=== PATIENT | female | born 1935 | race Caucasian/White ===

== ENCOUNTER → 2016-07-15 | Outpatient (CLI) | payer OTHER ==
[2014-08-20 15:01] VITALS: BP 160/61
[~2016-07-15] MED LIST: ATEN50TA PO; FERR500P8 MC; HYDR-2666 PO; INFL100V IV; LEVO75TA5 PO; LISI-334 PO; METH2.5T PO
--- NOTE | 2016-07-16 08:38 | KCIC ---
Bilateral digital screening mammograms with CAD: HISTORY Routine screening COMPARISON Comparison is made to previous examinations dated back to 04/22/2012. FINDINGS Breast density category C. The skin and nipples show no abnormalities. No abnormal lymph nodes are seen in the axilla. The breast parenchyma shows heterogeneous density. There are post biopsy changes in the right breast. There are no new dominant masses, suspicious calcifications or architectural distortions. IMPRESSION No evidence of malignancy. Recommend routine annual mammographic screening. This study was interpreted with the benefit of Computerized Aided Detection (CAD). Mammography is not 100% sensitive in detecting breast cancer. Therefore, a self breast exam and a clinical breast exam are very important. A negative mammogram does not negate a clinically suspicious finding and should not result in a delay in biopsying a clinically suspicious abnormality. BI-RADS category 2: Benign. This patient's information has been entered into a reminder system for the patient to be notified with the results of this examination and a target date for her next mammograms. Electronically signed by: Leydi Cota MD (Jul 16, 2016 08:36:15)
== END | disposition home or self-care (01) ==
LOC: KCIC MAMMO 10:29
PROVIDERS: ATTEND Family Medicine
DX: Z12.31 Encounter for screening mammogram for malignant neoplasm of breast (principal)
CPT/HCPCS: 77052; G0202

== ENCOUNTER → 2017-08-03 | Outpatient (CLI) | payer OTHER | END | disposition home or self-care (01) | LOC: KCIC MAMMO 12:24 | DX: Z12.31 Encounter for screening mammogram for malignant neoplasm of breast (principal) | CPT/HCPCS: 77063; 77067 ==

== ENCOUNTER → 2018-08-04 | Outpatient (CLI) | payer OTHER ==
[2014-08-20 15:01] VITALS: BP 160/61
[~2018-08-04] MED LIST changes: -HYDR-2666 PO; +HYDR-2761 PO
--- NOTE | 2018-08-04 17:03 | KCIC ---
Bilateral digital screening mammograms: Reason for examination: Routine screening. Comparison is made to previous studies dated 08/03/2017 and 07/15/2016. Interpretation was made with the benefit of CAD. The skin and nipples show no abnormalities. No abnormal axillary lymph nodes are seen. The breast parenchyma is heterogeneously dense. (Breast density: Category C.) There is a nodule consistent with an intramammary lymph node at the 2:00 position of the left breast posteriorly. There are no new dominant masses, suspicious calcifications or architectural distortion. Impression: No evidence of malignancy. Recommend routine screening. Your patient's mammogram demonstrates that she has dense breast tissue (breast density category C or D), which could hide abnormalities, and if she has other risk factors for breast cancer that have been identified, she might benefit from supplemental screening tests that may be suggested by you as her ordering physician. Dense breast tissue, in and of itself, is a relatively common condition. Therefore, this information is not provided to cause undue concern, but rather to raise your awareness and to promote discussion with your patient regarding the presence of other risk factors, in addition to dense breast tissue. Your patient's mammography results will be sent to her. BI-RAD Category 2: Benign. "Our facility is accredited by the [employer] Mammography Program." This patient's information has been entered into a reminder system for the patient to be notified with the results of her examination and a target date for the next mammogram. Electronically signed by: Maggy Cota MD (08/04/2018 4:58 PM) [id number]
== END | disposition home or self-care (01) ==
LOC: KCIC MAMMO 13:51
PROVIDERS: ATTEND Family Medicine
DX: Z12.31 Encounter for screening mammogram for malignant neoplasm of breast (principal); N63.21 Unspecified lump in the left breast, upper outer quadrant
CPT/HCPCS: 77067

== ENCOUNTER → 2019-01-17 | Outpatient (CLI) | payer OTHER ==
[2014-08-20 15:01] VITALS: BP 160/61
--- NOTE | 2019-01-17 12:58 | RAD ---
Left lower extremity venous duplex study 01/17/2019 Clinical History: Left lower extremity edema Technique: Using a combination of real time ultrasound imaging and color-flow and pulse Doppler imaging techniques, including spectral analysis, graded compression and augmentation, duplex evaluation of the deep venous system of the left lower extremity was performed. Multiple images were obtained. Findings: There is no sonographic evidence of deep venous thrombosis involving the visualized deep venous structures of the left lower extremity Impression: No evidence of deep venous thrombosis involving the left lower extremity Electronically signed by: Henri Ramos MD (01/17/2019 12:55 PM) [id number]
== END | disposition home or self-care (01) ==
LOC: US 09:48
PROVIDERS: ATTEND Registered Nurse
DX: M79.89 Other specified soft tissue disorders (principal); M79.605 Pain in left leg
CPT/HCPCS: 93971

== ENCOUNTER → 2019-08-09 | Outpatient (CLI) | payer MEDICARE, OTHER ==
[2019-02-16 15:00] VITALS: BP 134/53
[~2019-08-09] MED LIST changes: +ATOR20TA PO; +CELE100C PO; +CHOL10003 PO; +FERR325T14 PO; +FOLI1TAB16 PO
--- NOTE | 2019-08-09 16:04 | KCIC ---
EXAM: Left lower extremity venous Doppler sonogram. HISTORY: Pain and swelling. TECHNIQUE: Donato scale and color Doppler sonographic evaluation of the left lower extremity veins with spectral waveform analysis was performed. FINDINGS: There is normal color flow, normal compressibility and there are normal spectral waveforms in the common femoral, superficial femoral, popliteal, posterior tibial and greater saphenous veins. IMPRESSION: No Doppler evidence of lower extremity deep venous thrombosis. Electronically signed by: Mya Espinosa MD (08/09/2019 4:00 PM) [facility] [place]
== END | disposition home or self-care (01) ==
LOC: KCIC US 15:16
PROVIDERS: ATTEND Family Medicine
DX: R60.0 Localized edema (principal)
CPT/HCPCS: 93971

== ENCOUNTER → 2020-01-31 | Outpatient (CLI) | payer MEDICARE ==
[2019-02-16 15:00] VITALS: BP 134/53
--- NOTE | 2020-01-31 12:00 | RAD ---
EXAM: Bilateral lower extremity arterial Doppler. HISTORY: Bilateral lower extremity pain, peripheral vascular disease. COMPARISON: None. FINDINGS: Grayscale and Doppler analysis of the lower extremity arterial systems was performed bilaterally. On the right, there are monophasic waveforms from the common femoral artery through the distal superficial femoral artery. There are elevated peak systolic velocities within the mid and distal superficial femoral artery. More distally, they become biphasic consistent with collateralization. There also appear monophasic within the dorsalis pedis artery. On the left, there are triphasic waveforms throughout. There are elevated velocities within the proximal and mid superficial femoral artery. IMPRESSION: 1. Findings consistent with significantly flow-limiting stenosis proximal to the right common femoral artery. There appears to be collateralization with improvement of waveforms in the right popliteal artery. Additional flow-limiting stenosis is suspected within the trifurcation vessels as the dorsalis pedis waveform is monophasic. 2. Mildly flow-limiting stenosis proximal to the left common femoral artery. Additional mildly flow-limiting stenosis is suspected within the left superficial femoral artery. Electronically signed by: Philomena Lambert MD (01/31/2020 11:57 AM) [id number]
== END | disposition home or self-care (01) ==
LOC: US 09:43
PROVIDERS: ATTEND Family Medicine
DX: I70.202 Unspecified atherosclerosis of native arteries of extremities, left leg (principal); M79.604 Pain in right leg; M79.605 Pain in left leg
CPT/HCPCS: 93925

== ENCOUNTER → 2020-05-02 | Outpatient (CLI) | payer MEDICARE ==
[2019-02-16 15:00] VITALS: BP 134/53
--- NOTE | 2020-05-02 12:33 | KCIC ---
LUMBAR SPINE WO CONTRAST Date: 05/02/2020 10:15 AM Indication: RIGHT AND LEFT LEG PAIN. Recent procedure done for compression fx. New onset of severe leg pain after recent vertebroplasty. Comparison: None. Technique: Multi-planar multi-weighted magnetic resonance imaging of the lumbar spine was performed without intravenous contrast using the standard lumbar spine protocol. FINDINGS: L1 compression deformity with 30 percent loss of vertebral body height and changes of vertebral augmentation. Osseous retropulsion of the superior endplate results in moderate spinal canal stenosis with abutment of the conus medullaris. No convincing abnormal spinal cord signal. Mild to moderate multilevel degenerative disc desiccation and disc height loss. Bone marrow signal intensity is normal. No soft tissue abnormality in the visualized abdomen or pelvis. T12-L1: Disc bulge. Osseous retropulsion. Moderate spinal canal stenosis. Mild facet arthropathy. Ligamentum flavum thickening. Mild neural foraminal narrowing. L1-L2: Disc bulge. Mild facet arthropathy. No significant spinal canal stenosis or neural foraminal narrowing. L2-L3: Disc bulge with annular tear. Mild facet arthropathy. Mild spinal stenosis. Mild left neural foraminal narrowing. L3-L4: Disc bulge with annular tear. Mild to moderate facet arthropathy. Mild spinal stenosis. Mild left neural foraminal narrowing. L4-L5: Disc bulge with annular tear. Mild right and moderate left facet arthropathy. No significant spinal stenosis. Mild lateral recess narrowing. Mild right neural foraminal narrowing. L5-S1: Disc bulge. Mild facet arthropathy. No significant spinal stenosis. Mild bilateral neural foraminal narrowing. IMPRESSION: 1. Acute to subacute L1 compression deformity with changes of vertebral augmentation. Osseous retropulsion results in moderate spinal canal stenosis with mass effect on the conus medullaris. Recommended comparison with prior imaging to assess for progression of height loss. 2. Mild to moderate lumbar spondylosis, detailed level by level above. Electronically signed by: Sebastien Estrada MD (05/02/2020 12:30 PM) [id number]
== END ==
LOC: KCIC MRI 09:51
PROVIDERS: ATTEND Nurse Practitioner Gerontology
DX: M47.817 Spondylosis without myelopathy or radiculopathy, lumbosacral region (principal); M47.815 Spondylosis without myelopathy or radiculopathy, thoracolumbar region; M48.05 Spinal stenosis, thoracolumbar region; M48.07 Spinal stenosis, lumbosacral region; M43.8X6 Other specified deforming dorsopathies, lumbar region
CPT/HCPCS: 72148

== ENCOUNTER 2020-07-30 14:36 | Inpatient (IN) | payer MEDICARE ==
[~2020-07-30] VITALS: Ht 167.6 cm; Wt 59.3 kg
[~2020-07-30 14:36] MED LIST changes: -LISI-334 PO; +LISI20TA18 PO
[2020-07-30 15:18] LABS: BASO # 0.1 x10^3/uL (0.0-0.2); BASO % 1 % (0-3); EOS # 0.3 x10^3/uL (0.0-0.7); EOS % 2 % (0-3); HEMATOCRIT 31.7 % (36.0-47.0); HEMOGLOBIN 10.6 g/dL (12.0-15.5); LYMPH # 1.2 x10^3/uL (1.0-4.8); LYMPH % 8 % (24-48); MEAN CORPUSCULAR HEMOGLOBIN 31 pg (25-35); MEAN CORPUSCULAR HGB CONC 33 g/dL (31-37); MEAN CORPUSCULAR VOLUME 92 fL (79-100); MONO # 1.2 x10^3/uL (0.0-1.1); MONO % 8 % (0-9); NEUT # 11.9 x10^3/uL (1.8-7.7); NEUT % 82 % (31-73); PLATELET COUNT 705 x10^3/uL (140-400); RED BLOOD COUNT 3.45 x10^6/uL (3.50-5.40); RED CELL DISTRIBUTION WIDTH 15.7 % (11.5-14.5); WHITE BLOOD COUNT 14.6 x10^3/uL (4.0-11.0)
[2020-07-30 15:27] LABS: CREATININE 0.9 mg/dL (0.6-1.0); GFR 59.8; POTASSIUM 5.1 mmol/L (3.5-5.1)
[2020-07-30 15:32] LABS: ALBUMIN 3.1 g/dL (3.4-5.0); ALBUMIN/GLOBULIN RATIO 0.9 (1.0-1.7); MAGNESIUM 2.1 mg/dL (1.8-2.4); TOTAL BILIRUBIN 0.3 mg/dL (0.2-1.0); TOTAL PROTEIN 6.6 g/dL (6.4-8.2)
--- NOTE | 2020-07-30 15:57 | RAD ---
XR CHEST 1V History: Reason: generalized weakness / Spl. Instructions: / History: Comparison: February 11, 2019 Findings: Moderate left pleural effusion with adjacent opacity. Chronic right-sided rib fractures. No pneumotho rax. Unchanged heart size. TAVR noted. Postop changes upper lumbar spine. Impression: 1. Moderate left pleural effusion with adjacent atelectasis. Electronically signed by: Franko Lopez DO (07/30/2020 3:54 PM) [id number]
[2020-07-30 16:19] LABS: BILIRUBIN,URINE NEGATIVE (NEG); CLARITY,URINE CLEAR; COLOR,URINE YELLOW; NITRITE,URINE NEGATIVE (NEG); PH,URINE 6.5 (<5.0-8.0); PROTEIN,URINE NEGATIVE (NEG-TRACE); UROBILINOGEN,URINE 0.2 mg/dL (0.2 mg/dL)
[2020-07-30 16:25] LABS: BACTERIA,URINE 0 /HPF (0-FEW); RBC,URINE 0 /HPF (0-2); WBC,URINE OCC /HPF (0-4)
--- NOTE | 2020-07-30 16:47 | ED.ADGEN ---
Past Medical History Past Medical History: Hypertension, Other Additional Past Medical Histor: thyroid disease, RA, anemia, Past Surgical History: Other Additional Past Surgical Histo: thyroid, biopsy of R breast, AORTIC VALVE REPLACEMENT Smoking Status: Former Smoker Alcohol Use: Rarely Drug Use: None General Adult EDM: Chief Complaint: WEAKNESS/GENERALIZED HPI: HPI: Patient is a 84 year old female who presents emergency department with complaints of generalized weakness that has gotten worse over the last week. She denies any chest pain, palpitations, cough, shortness of breath, nausea, vomiting, diarrhea, abdominal pain, body aches, numbness, tingling, or edema. Patient states she saw her primary care doctor a week ago and received a steroid injection into both of her knees. Patient states she had some lab work done at that time and was prescribed antibiotic that began with O. She is not sure what the antibiotic was. Patient states she was supposed to get a chest x-ray but never did. She denies any known exposure to COVID-19 or influenza. She denies any dysuria, increased urinary frequency, hematuria, or difficulty voiding. She denies any headache or difficulty speaking. The patient currently denies any pain. Review of Systems: Review of Systems: Complete ROS is negative unless otherwise noted in HPI. Allergies: Allergies: Allergies Coded Allergies Type Severity Reaction Last Updated Verified No Known Drug Allergies 08/20/14 No Physical Exam: PE: Constitutional: Well developed, well nourished, no acute distress, non-toxic appearance. [] HENT: Normocephalic, atraumatic, bilateral external ears normal, nose normal. [] Eyes: PERRLA, EOMI, conjunctiva normal, no discharge. [] Neck: Normal range of motion, no stridor. [] Cardiovascular:Heart rate regular rhythm Lungs & Thorax: Respirations even and unlabored, no retractions, no respiratory distress Abdomen: soft, no tenderness Skin: Warm, dry, no erythema, no rash. [] Extremities: No cyanosis, ROM intact, no edema. [] Neurologic: Alert and oriented X 3, motor intact, sensation intact, no focal deficits noted. [] Psychologic: Affect normal, judgement normal, mood normal. [] Current Patient Data: Labs: Laboratory Tests Test 07/30/20 14:45 07/30/20 16:05 White Blood Count 14.6 x10^3/uL (4.0-11.0) H Red Blood Count 3.45 x10^6/uL (3.50-5.40) L Hemoglobin 10.6 g/dL (12.0-15.5) L Hematocrit 31.7 % (36.0-47.0) L Mean Corpuscular Volume 92 fL (79-100) Mean Corpuscular Hemoglobin 31 pg (25-35) Mean Corpuscular Hemoglobin Concent 33 g/dL (31-37) Red Cell Distribution Width 15.7 % (11.5-14.5) H Platelet Count 705 x10^3/uL (140-400) H Neutrophils (%) (Auto) 82 % (31-73) H Lymphocytes (%) (Auto) 8 % (24-48) L Monocytes (%) (Auto) 8 % (0-9) Eosinophils (%) (Auto) 2 % (0-3) Basophils (%) (Auto) 1 % (0-3) Neutrophils # (Auto) 11.9 x10^3/uL (1.8-7.7) H Lymphocytes # (Auto) 1.2 x10^3/uL (1.0-4.8) Monocytes # (Auto) 1.2 x10^3/uL (0.0-1.1) H Eosinophils # (Auto) 0.3 x10^3/uL (0.0-0.7) Basophils # (Auto) 0.1 x10^3/uL (0.0-0.2) Sodium Level 131 mmol/L (136-145) L Potassium Level 5.1 mmol/L (3.5-5.1) Chloride Level 95 mmol/L (98-107) L Carbon Dioxide Level 26 mmol/L (21-32) Anion Gap 10 (6-14) Blood Urea Nitrogen 33 mg/dL (7-20) H Creatinine 0.9 mg/dL (0.6-1.0) Estimated GFR (Cockcroft-Gault) 59.8 BUN/Creatinine Ratio 37 (6-20) H Glucose Level 102 mg/dL (70-99) H Calcium Level 9.0 mg/dL (8.5-10.1) Magnesium Level 2.1 mg/dL (1.8-2.4) Total Bilirubin 0.3 mg/dL (0.2-1.0) Aspartate Amino Transferase (AST) 30 U/L (15-37) Alanine Aminotransferase (ALT) 25 U/L (14-59) Alkaline Phosphatase 90 U/L (46-116) Troponin I Quantitative 0.019 ng/mL (0.000-0.055) Total Protein 6.6 g/dL (6.4-8.2) Albumin 3.1 g/dL (3.4-5.0) L Albumin/Globulin Ratio 0.9 (1.0-1.7) L Urine Collection Type Unknown Urine Color Yellow Urine Clarity Clear Urine pH 6.5 (<5.0-8.0) Urine Specific [place] 1.010 (1.000-1.030) Urine Protein Negative mg/dL (NEG-TRACE) Urine Glucose (UA) Negative mg/dL (NEG) Urine Ketones (Stick) Negative mg/dL (NEG) Urine Blood Negative (NEG) Urine Nitrite Negative (NEG) Urine Bilirubin Negative (NEG) Urine Urobilinogen Dipstick 0.2 mg/dL (0.2 mg/dL) Urine Leukocyte Esterase Negative (NEG) Urine RBC 0 /HPF (0-2) Urine WBC Occ /HPF (0-4) Urine Squamous Epithelial Cells Few /LPF Urine Bacteria 0 /HPF (0-FEW) Laboratory Tests 07/30/20 14:45 Laboratory Tests 07/30/20 14:45 Vital Signs: Vital Signs Date Time Temp Pulse Resp B/P (MAP) Pulse Ox O2 Delivery O2 Flow Rate FiO2 07/30/20 16:45 94 18 94 07/30/20 14:45 97.8 144/65 (91) Room Air 97.8 EKG: EKG: [][id number] rhythm, LVH with repolarization abnormality, rate 94, no STEMI Heart Score: Risk Scores: Score 0 - 3: 2.5% MACE over next 6 weeks - Discharge Home Score 4 - 6: 20.3% MACE over next 6 weeks - Admit for Clinical Observation Score 7 - 10: 72.7% MACE over next 6 weeks - Early Invasive Strategies Radiology/Procedures: Radiology/Procedures: PROCEDURE: CHEST AP ONLY XR CHEST 1V History: Reason: generalized weakness / Spl. Instructions: / History: Comparison: February 11, 2019 Findings: Moderate left pleural effusion with adjacent opacity. Chronic right-sided rib fractures. No pneumothorax. Unchanged heart size. TAVR noted. Postop changes upper lumbar spine. Impression: 1. Moderate left pleural effusion with adjacent atelectasis. [] Course & Med Decision Making: Course & Med Decision Making Pertinent Labs and Imaging studies reviewed. (See chart for details) [id number]-spoke with Dr. Kimble who is the admitting physician, and care was assumed following discussion of patient. Will admit patient for generalized weakness and left pleural effusion. Patient's vital signs stable. Patient remains afebrile, appears nontoxic, respirations even and unlabored. Patient will be admitted to the medical surgical floor. Patient's case and plan of care also discussed with Dr. Bueno [] Ganesh Disclaimer: Ganesh Disclaimer: This electronic medical record was generated, in whole or in part, using a voice recognition dictation system. Departure Departure Impression: Primary Impression: Weakness Additional Impression: Pleural effusion, left Disposition: 09 ADMITTED INPT THIS HOSP Admitting Physician: TARAH (Lamin ) Condition: STABLE Referrals: YADIRA WEI MD (PCP) Problem Qualifiers ANITA MILLER APRN Jul 30, 2020 16:47
[2020-07-30] MEDS ORDERED: AZITHRMYCN 500MG IVPB FOR OMNI 250 ML IV ONE (17:15)
[2020-07-30 19:15] VITALS: BP 140/63
--- NOTE | 2020-07-30 20:45 | PDOC1 ---
History and Physical Date of Admission Date of Admission DATE: 07/30/20 TIME: 20:39 Identification/Chief Complaint Chief Complaint weakness, pain Source Source: Chart review, Patient History of Present Illness History of Present Illness Ms. Null, is a 84-year-old female with history of aortic stenosis s/p TAVR at [facility] in June 2018 admit from ER for marked weaknes, worse over 1 week, and severe today. could not get out of bed, was directed to the ER by primary care no LE edema, but left leg pain, Past Medical History Cardiovascular: HTN, Other Musculoskeletal: low back pain Rheumatologic: Rheumatoid arthritis Endocrine: Hypothyroidism Past Surgical History Past Surgical History: Other Family History Family History: High Cholestrol, Hypertension Social History Smoke: No ALCOHOL: none Drugs: None Current Problem List Problem List Problems Medical Problems: (1) Pleural effusion, left Status: Acute (2) Weakness Status: Acute Current Medications Current Medications Current Medications Azithromycin 250 ml @ 250 mls/hr 1X ONCE IV Last administered on 07/30/20at 18:50; Start 07/30/20 at 17:15; Stop 07/30/20 at 18:14; Status DC Active Scripts Active Celebrex (Celecoxib) 100 Mg Capsule 100 Mg PO BID 14 Days Methotrexate (Methotrexate Sodium) 2.5 Mg Tablet 15 Mg PO FR@0900 30 Days Reported Lipitor (Atorvastatin Calcium) 20 Mg Tablet 20 Mg PO HS Vitamin D3 (Cholecalciferol (Vitamin D3)) 1,000 Unit Tablet 1 Tab PO DAILY Folic Acid 1 Mg Tablet 1 Mg PO DAILY Ferrous Sulfate 325 Mg Tablet 325 Mg PO DAILY Hydrocodone-Apap 5-325 (Hydrocodone Bit/Acetaminophen) 1 Each Tablet 1-2 Tab PO Q 4 HOURS Levothyroxine Sodium 75 Mcg Tablet 75 Mcg PO Lisinopril 20 Mg Tablet 1 Tab PO DAILY Allergies Allergies: Coded Allergies: No Known Drug Allergies (Unverified , 08/20/14) ROS General: YES: Fatigue, Malaise; No: Chills, Night Sweats, Appetite, Other PSYCHOLOGICAL ROS: YES: Sleep disturbances; No: Anxiety, Behavioral Disorder, Concentration difficultie, Decreased libido, Depression, Disorientation, Hallucinations, Hostility, Irritablity, Memory difficulties, Mood Swings, Obsessive thoughts, Physical abuse, Sexual abuse, Other Eyes: No Blurry vision, No Decreased vision, No Double vision, No Dry eyes, No Excessive tearing, No Eye Pain, No Itchy Eyes, No Loss of vision, No Photophobia, No Scotomata, No Uses contacts, No Uses glasses, No Other HEENT: No: Heacaches, Visual Changes, Hearing change, Nasal congestion, Nasal discharge, Oral lesions, Sinus pain, Sore Throat, Epistaxis, Sneezing, Snoring, Tinnitus, Vertigo, Vocal changes, Other Respiratory: No: Cough, Hemoptysis, Orthopnea, Pleuritic Pain, Shortness of breath, SOB with excertion, Sputum Changes, Stridor, Tachypnea, Wheezing, Other Cardiovascular: No Chest Pain, No Palpitations, No Orthopnea, No Paroxysmal Noc. Dyspnea, No Edema, No Lt Headedness, No Other Gastrointestinal: No Nausea, No Vomiting, No Abdominal Pain, No Diarrhea, No Constipation, No Melena, No Hematochezia, No Other Genitourinary: No Dysuria, No Frequency, No Incontinence, No Hematuria, No Retention, No Discharge, No Urgency, No Pain, No Flank Pain, No Other, No , No , No , No , No , No , No Musculoskeletal: Yes Gait Disturbance, Yes Joint Pain, Yes Joint Stiffness, Yes Muscular Weakness Neurological: No Behavorial Changes, No Bowel/Bladder ControlChng, No Confusion, No Dizziness, No Gait Disturbance, No Headaches, No Impaired Coord/balance, No Memory Loss, No Numbness/Tingling, No Seizures, No Speech Problems, No Tremors, No Visual Changes, No Weakness, No Other Skin: Yes Dry Skin; No Eczema, No Hair Changes, No Lumps, No Mole Changes, No Mottling, No Nail Changes, No Pruritus, No Rash, No Skin Lesion Changes, No Other, No Acne Physical Exam General: Alert, Oriented X3, Cooperative, mild distress (weaknss, leg pain) HEENT: PERRLA Lungs: Clear to auscultation Heart: S1S2, RRR Abdomen: Normal bowel sounds, Soft Extremities: No cyanosis, No edema, Normal pulses Skin: No rashes, No breakdown, No significant lesion Neuro: Normal gait, Normal tone Psych/Mental Status: Mental status NL, Mood NL Vitals Vitals Vital Signs Date Time Temp Pulse Resp B/P (MAP) Pulse Ox O2 Delivery O2 Flow Rate FiO2 07/30/20 18:45 98 18 95 07/30/20 14:45 97.8 144/65 (91) Room Air 97.8 Labs Labs Laboratory Tests Test 07/30/20 14:45 07/30/20 16:05 White Blood Count 14.6 x10^3/uL (4.0-11.0) Red Blood Count 3.45 x10^6/uL (3.50-5.40) Hemoglobin 10.6 g/dL (12.0-15.5) Hematocrit 31.7 % (36.0-47.0) Mean Corpuscular Volume 92 fL (79-100) Mean Corpuscular Hemoglobin 31 pg (25-35) Mean Corpuscular Hemoglobin Concent 33 g/dL (31-37) Red Cell Distribution Width 15.7 % (11.5-14.5) Platelet Count 705 x10^3/uL (140-400) Neutrophils (%) (Auto) 82 % (31-73) Lymphocytes (%) (Auto) 8 % (24-48) Monocytes (%) (Auto) 8 % (0-9) Eosinophils (%) (Auto) 2 % (0-3) Basophils (%) (Auto) 1 % (0-3) Neutrophils # (Auto) 11.9 x10^3/uL (1.8-7.7) Lymphocytes # (Auto) 1.2 x10^3/uL (1.0-4.8) Monocytes # (Auto) 1.2 x10^3/uL (0.0-1.1) Eosinophils # (Auto) 0.3 x10^3/uL (0.0-0.7) Basophils # (Auto) 0.1 x10^3/uL (0.0-0.2) Sodium Level 131 mmol/L (136-145) Potassium Level 5.1 mmol/L (3.5-5.1) Chloride Level 95 mmol/L (98-107) Carbon Dioxide Level 26 mmol/L (21-32) Anion Gap 10 (6-14) Blood Urea Nitrogen 33 mg/dL (7-20) Creatinine 0.9 mg/dL (0.6-1.0) Estimated GFR (Cockcroft-Gault) 59.8 BUN/Creatinine Ratio 37 (6-20) Glucose Level 102 mg/dL (70-99) Calcium Level 9.0 mg/dL (8.5-10.1) Magnesium Level 2.1 mg/dL (1.8-2.4) Total Bilirubin 0.3 mg/dL (0.2-1.0) Aspartate Amino Transf (AST/SGOT) 30 U/L (15-37) Alanine Aminotransferase (ALT/SGPT) 25 U/L (14-59) Alkaline Phosphatase 90 U/L (46-116) Troponin I Quantitative 0.019 ng/mL (0.000-0.055) Total Protein 6.6 g/dL (6.4-8.2) Albumin 3.1 g/dL (3.4-5.0) Albumin/Globulin Ratio 0.9 (1.0-1.7) Urine Collection Type Unknown Urine Color Yellow Urine Clarity Clear Urine pH 6.5 (<5.0-8.0) Urine Specific [place] 1.010 (1.000-1.030) Urine Protein Negative mg/dL (NEG-TRACE) Urine Glucose (UA) Negative mg/dL (NEG) Urine Ketones (Stick) Negative mg/dL (NEG) Urine Blood Negative (NEG) Urine Nitrite Negative (NEG) Urine Bilirubin Negative (NEG) Urine Urobilinogen Dipstick 0.2 mg/dL (0.2 mg/dL) Urine Leukocyte Esterase Negative (NEG) Urine RBC 0 /HPF (0-2) Urine WBC Occ /HPF (0-4) Urine Squamous Epithelial Cells Few /LPF Urine Bacteria 0 /HPF (0-FEW) Laboratory Tests Test 07/30/20 14:45 07/30/20 16:05 White Blood Count 14.6 x10^3/uL (4.0-11.0) Red Blood Count 3.45 x10^6/uL (3.50-5.40) Hemoglobin 10.6 g/dL (12.0-15.5) Hematocrit 31.7 % (36.0-47.0) Mean Corpuscular Volume 92 fL (79-100) Mean Corpuscular Hemoglobin 31 pg (25-35) Mean Corpuscular Hemoglobin Concent 33 g/dL (31-37) Red Cell Distribution Width 15.7 % (11.5-14.5) Platelet Count 705 x10^3/uL (140-400) Neutrophils (%) (Auto) 82 % (31-73) Lymphocytes (%) (Auto) 8 % (24-48) Monocytes (%) (Auto) 8 % (0-9) Eosinophils (%) (Auto) 2 % (0-3) Basophils (%) (Auto) 1 % (0-3) Neutrophils # (Auto) 11.9 x10^3/uL (1.8-7.7) Lymphocytes # (Auto) 1.2 x10^3/uL (1.0-4.8) Monocytes # (Auto) 1.2 x10^3/uL (0.0-1.1) Eosinophils # (Auto) 0.3 x10^3/uL (0.0-0.7) Basophils # (Auto) 0.1 x10^3/uL (0.0-0.2) Sodium Level 131 mmol/L (136-145) Potassium Level 5.1 mmol/L (3.5-5.1) Chloride Level 95 mmol/L (98-107) Carbon Dioxide Level 26 mmol/L (21-32) Anion Gap 10 (6-14) Blood Urea Nitrogen 33 mg/dL (7-20) Creatinine 0.9 mg/dL (0.6-1.0) Estimated GFR (Cockcroft-Gault) 59.8 BUN/Creatinine Ratio 37 (6-20) Glucose Level 102 mg/dL (70-99) Calcium Level 9.0 mg/dL (8.5-10.1) Magnesium Level 2.1 mg/dL (1.8-2.4) Total Bilirubin 0.3 mg/dL (0.2-1.0) Aspartate Amino Transf (AST/SGOT) 30 U/L (15-37) Alanine Aminotransferase (ALT/SGPT) 25 U/L (14-59) Alkaline Phosphatase 90 U/L (46-116) Troponin I Quantitative 0.019 ng/mL (0.000-0.055) Total Protein 6.6 g/dL (6.4-8.2) Albumin 3.1 g/dL (3.4-5.0) Albumin/Globulin Ratio 0.9 (1.0-1.7) Urine Collection Type Unknown Urine Color Yellow Urine Clarity Clear Urine pH 6.5 (<5.0-8.0) Urine Specific [place] 1.010 (1.000-1.030) Urine Protein Negative mg/dL (NEG-TRACE) Urine Glucose (UA) Negative mg/dL (NEG) Urine Ketones (Stick) Negative mg/dL (NEG) Urine Blood Negative (NEG) Urine Nitrite Negative (NEG) Urine Bilirubin Negative (NEG) Urine Urobilinogen Dipstick 0.2 mg/dL (0.2 mg/dL) Urine Leukocyte Esterase Negative (NEG) Urine RBC 0 /HPF (0-2) Urine WBC Occ /HPF (0-4) Urine Squamous Epithelial Cells Few /LPF Urine Bacteria 0 /HPF (0-FEW) VTE Prophylaxis Ordered VTE Prophylaxis Devices: Yes VTE Pharmacological Prophylaxi: Yes Assessment/Plan Assessment/Plan acute weakness, debility, worsenign over days new left pleural effusion, possibly from cardiac Hc aortic stenosis, s/p valve repair, rheumatoid arthritis, s/p pathologic fx to L1 leg pain and weakness, , chronic knee pain, s/p joint injection Dr. Cueto office last week by his [employer] Justifications for Admission Other Justification MERLENE YU MD Jul 30, 2020 20:45
[2020-07-30] MEDS: CELECOXIB 100 MG CAPSULE. PO SCH ×2 (21:00→22:08)
[2020-07-30] MEDS: ATORVASTATIN CALCIUM 20 MG TABLET PO SCH (22:08)
[2020-07-30] MEDS: HYDROcodone/APAP 5/325MG 1 TAB TABLET PO PRN (22:09)
[2020-07-30 23:00] VITALS: BP 153/69
[2020-07-31] VITALS (8 sets, daily range): BP systolic 102–165; BP diastolic 47–74
[2020-07-31] MEDS: LEVOTHYROXINE 75 MCG TABLET PO SCH (05:38)
[2020-07-31] MEDS: HYDROcodone/APAP 5/325MG 1 TAB TABLET PO PRN ×2 (05:38→14:18)
[2020-07-31] MEDS: CELECOXIB 100 MG CAPSULE. PO SCH (05:39)
--- NOTE | 2020-07-31 08:18 | PDOC ---
[employer] PROGRESS NOTE Date of Service DOS: DATE: 07/31/20 TIME: 08:12 Chief Complaint Chief Complaint Assessment/Plan acute weakness, debility, worsenign over days new left pleural effusion, possibly from cardiac Hc aortic stenosis, s/p valve repair, rheumatoid arthritis, s/p pathologic fx to L1 leg pain and weakness, , chronic knee pain, s/p joint injection Dr. Cueto office last week by his [employer] History of Present Illness History of Present Illness Ms. Null, is a 84-year-old female with history of aortic stenosis s/p TAVR at [facility] in June 2018 admit from ER for marked weaknes, worse over 1 week, and severe today. could not get out of bed, was directed to the ER by primary care no LE edema, but left leg pain, 07/31: Patient evaluated bedside. Afebrile, breathing room air. Thoracentesis has been ordered. PT/OT. Continue home medications. Will follow cardiology recommendations. Patient apparently is not on methotrexate anymore but on sulfasalazine at an unknown dose. Will try to obtain accurate home medications from pharmacy. Vitals/I&O Vitals/I&O: Vital Signs Date Time Temp Pulse Resp B/P (MAP) Pulse Ox O2 Delivery O2 Flow Rate FiO2 07/31/20 06:38 18 93 Room Air 07/31/20 03:00 98.3 92 165/74 (104) 98.3 I & O 07/30/20 07/30/20 07/31/20 15:00 23:00 07:00 Intake Total 0 ml 540 ml Balance 0 ml 540 ml Physical Exam General: Alert, Oriented X3, Cooperative, No acute distress Heart: Regular rate Lungs: Clear Abdomen: Normal bowel sounds, Soft Extremities: No cyanosis, No edema, Normal pulses Skin: No rashes, No breakdown, No significant lesion Labs Labs: Laboratory Tests Test 07/30/20 14:45 07/30/20 16:05 White Blood Count 14.6 x10^3/uL (4.0-11.0) Red Blood Count 3.45 x10^6/uL (3.50-5.40) Hemoglobin 10.6 g/dL (12.0-15.5) Hematocrit 31.7 % (36.0-47.0) Mean Corpuscular Volume 92 fL (79-100) Mean Corpuscular Hemoglobin 31 pg (25-35) Mean Corpuscular Hemoglobin Concent 33 g/dL (31-37) Red Cell Distribution Width 15.7 % (11.5-14.5) Platelet Count 705 x10^3/uL (140-400) Neutrophils (%) (Auto) 82 % (31-73) Lymphocytes (%) (Auto) 8 % (24-48) Monocytes (%) (Auto) 8 % (0-9) Eosinophils (%) (Auto) 2 % (0-3) Basophils (%) (Auto) 1 % (0-3) Neutrophils # (Auto) 11.9 x10^3/uL (1.8-7.7) Lymphocytes # (Auto) 1.2 x10^3/uL (1.0-4.8) Monocytes # (Auto) 1.2 x10^3/uL (0.0-1.1) Eosinophils # (Auto) 0.3 x10^3/uL (0.0-0.7) Basophils # (Auto) 0.1 x10^3/uL (0.0-0.2) Sodium Level 131 mmol/L (136-145) Potassium Level 5.1 mmol/L (3.5-5.1) Chloride Level 95 mmol/L (98-107) Carbon Dioxide Level 26 mmol/L (21-32) Anion Gap 10 (6-14) Blood Urea Nitrogen 33 mg/dL (7-20) Creatinine 0.9 mg/dL (0.6-1.0) Estimated GFR (Cockcroft-Gault) 59.8 BUN/Creatinine Ratio 37 (6-20) Glucose Level 102 mg/dL (70-99) Calcium Level 9.0 mg/dL (8.5-10.1) Magnesium Level 2.1 mg/dL (1.8-2.4) Total Bilirubin 0.3 mg/dL (0.2-1.0) Aspartate Amino Transf (AST/SGOT) 30 U/L (15-37) Alanine Aminotransferase (ALT/SGPT) 25 U/L (14-59) Alkaline Phosphatase 90 U/L (46-116) Troponin I Quantitative 0.019 ng/mL (0.000-0.055) Total Protein 6.6 g/dL (6.4-8.2) Albumin 3.1 g/dL (3.4-5.0) Albumin/Globulin Ratio 0.9 (1.0-1.7) Urine Collection Type Unknown Urine Color Yellow Urine Clarity Clear Urine pH 6.5 (<5.0-8.0) Urine Specific [place] 1.010 (1.000-1.030) Urine Protein Negative mg/dL (NEG-TRACE) Urine Glucose (UA) Negative mg/dL (NEG) Urine Ketones (Stick) Negative mg/dL (NEG) Urine Blood Negative (NEG) Urine Nitrite Negative (NEG) Urine Bilirubin Negative (NEG) Urine Urobilinogen Dipstick 0.2 mg/dL (0.2 mg/dL) Urine Leukocyte Esterase Negative (NEG) Urine RBC 0 /HPF (0-2) Urine WBC Occ /HPF (0-4) Urine Squamous Epithelial Cells Few /LPF Urine Bacteria 0 /HPF (0-FEW) Assessment and Plan Assessmemt and Plan Problems Medical Problems: (1) Pleural effusion, left Status: Acute (2) Weakness Status: Acute Comment Review of Relevant I have reviewed the following items cheng (where applicable) has been applied. Medications: Current Medications Medications (Trade) Dose Ordered Sig/Malorie Route PRN Reason Start Time Stop Time Status Last Admin Dose Admin Azithromycin 250 ml @ 250 mls/hr 1X ONCE IV 07/30/20 17:15 07/30/20 18:14 DC 07/30/20 18:50 Atorvastatin Calcium (Lipitor) 20 mg HS PO 07/30/20 21:00 07/30/20 22:08 Acetaminophen/ Hydrocodone Bitart (Lortab 5/325) 1 tab PRN Q4HRS PRN PO PAIN 07/30/20 20:45 07/31/20 05:38 Levothyroxine Sodium (Synthroid) 75 mcg DAILY06 PO 07/31/20 06:00 07/31/20 05:38 Justifications for Admission Other Justification CHUCK BUENROSTRO MD Jul 31, 2020 08:18
[2020-07-31 08:59] LABS: PROTHROMBIN TIME PATIENT 14.1 SEC (11.7-14.0)
[2020-07-31] MEDS ORDERED: FLU VACC QS 2020-21(6MOS+)/PF 0.5 ML SYRINGE. VAX IM ONE (09:00)
[2020-07-31] MEDS ORDERED: FUROSEMIDE 40 MG TABLET. PO SCH (09:00)
[2020-07-31] MEDS: FOLIC ACID 1 MG TABLET. PO SCH (09:08)
[2020-07-31] MEDS: LISINOPRIL 20 MG TABLET PO SCH (09:08)
[2020-07-31] MEDS: CHOLECALCIFEROL (VITAMIN D3) 1,000 UNIT TABLET PO SCH (09:08)
--- NOTE | 2020-07-31 09:39 | PDOC2 ---
MELISSA NOBLE TECHNICAL SOURCING RECRUITER 07/31/20 0939: CARDIAC CONSULT DATE OF CONSULT Date of Consult DATE: 07/31/20 TIME: 08:54 REASON FOR CONSULT Reason for Consult: S/P AVR, pleural effusion HISTORY OF PRESENT ILLNESS HISTORY OF PRESENT ILLNESS This is an 84 yo female admitted for complains of weakness. This has been increasing in the last week but has been going on in the last 3 weeks. Yesterday she just could not get up hence she called for help. She explained that she was so weak and fatigued. No changes in her appetite. Her last fall was 04/2020. Her back pain is better since her spinal fusion. No recent pnumonia or pulmonary infection. No chest pain, SOA, nor palpitations. No nausea or vomiting or diarrhea. She did see her PCP on 07/24 to which she was complaining on knee pain and weakness to both arms and legs and also some swelling to her left leg and hand. The swelling is now resolved. She did get steroid injection to both her knees. She does have RA and takes sulfasalazine. Also takes lipitor. Her TAVR was perfomed at [facility] on 2017 and has not seen her local sales manager over there since late 2018 due to the pandemic. Presently no cardiac symptoms. Denies any lower leg paresthesia but does have pain and weakness from knees down to her feet but ambulating does not make it worse. No leg wounds. NO fever or chills. Pt does have issues with anosmia and ageusia and this is chronic. . PAST MEDICAL HISTORY Cardiovascular: CHF, HTN, Hyperlipidemia, Other (chronic LBBB; PAD) GI: Constipation, GERD, Other (ageusia) Heme/Onc: Anemia NOS (Fe) Musculoskeletal: low back pain (lumbar radiculopathy), Osteoarthritis Rheumatologic: Rheumatoid arthritis (not on methotrexate) Infectious disease: No pertinent hx ENT: No pertinent hx, Other (chronic anosmia) Renal/: Other (chronic hyponatremia ) Endocrine: Hypothyroidism, Osteoporosis Dermatology: Other (melanoma) PAST SURGICAL HISTORY Past Surgical History: Other (TAVR 06/2018; partial thyroidectomy; 06/02/2020 posterolateral arthrodesis of T12-L1 and L1-L2 with vertebroplasty to T12 and L2; skin CA excision) FAMILY HISTORY Family History noncontributory SOCIAL HISTORY Smoke: Quit ALCOHOL: none Drugs: None Lives: with Family CURRENT MEDICATIONS CURRENT MEDICATIONS Current Medications Medications (Trade) Dose Ordered Sig/Malorie Route PRN Reason Start Time Stop Time Status Last Admin Dose Admin Azithromycin 250 ml @ 250 mls/hr 1X ONCE IV 07/30/20 17:15 07/30/20 18:14 DC 07/30/20 18:50 Atorvastatin Calcium (Lipitor) 20 mg HS PO 07/30/20 21:00 07/30/20 22:08 Acetaminophen/ Hydrocodone Bitart (Lortab 5/325) 1 tab PRN Q4HRS PRN PO PAIN 07/30/20 20:45 07/31/20 05:38 Levothyroxine Sodium (Synthroid) 75 mcg DAILY06 PO 07/31/20 06:00 07/31/20 05:38 ALLERGIES ALLERGIES: Coded Allergies: No Known Drug Allergies (Unverified , 08/20/14) ROS Review of System 14 point ROS evaluated with pertinent positives noted per HPI PHYSICAL EXAM General: Alert, Oriented X3, Cooperative, No acute distress HEENT: Atraumatic, Mucous membr. moist/pink Lungs: Other (diminished bases) Heart: Regular rate (no tele), Normal S1, Normal S2 Abdomen: Soft, No tenderness Extremities: No cyanosis, No edema Skin: No breakdown, No significant lesion Neuro: Normal speech, Sensation intact Psych/Mental Status: Mental status NL, Mood NL MUSCULOSKELETAL: Osteoarthritic changes both hands VITALS/I&O VITALS/I&O: Vital Signs Date Time Temp Pulse Resp B/P (MAP) Pulse Ox O2 Delivery O2 Flow Rate FiO2 07/31/20 06:38 18 93 Room Air 07/31/20 03:00 98.3 92 165/74 (104) 98.3 I & O 07/30/20 07/30/20 07/31/20 15:00 23:00 07:00 Intake Total 0 ml 540 ml Balance 0 ml 540 ml LABS Lab: Laboratory Tests Test 07/30/20 14:45 07/30/20 16:05 White Blood Count 14.6 x10^3/uL (4.0-11.0) H Red Blood Count 3.45 x10^6/uL (3.50-5.40) L Hemoglobin 10.6 g/dL (12.0-15.5) L Hematocrit 31.7 % (36.0-47.0) L Mean Corpuscular Volume 92 fL (79-100) Mean Corpuscular Hemoglobin 31 pg (25-35) Mean Corpuscular Hemoglobin Concent 33 g/dL (31-37) Red Cell Distribution Width 15.7 % (11.5-14.5) H Platelet Count 705 x10^3/uL (140-400) H Neutrophils (%) (Auto) 82 % (31-73) H Lymphocytes (%) (Auto) 8 % (24-48) L Monocytes (%) (Auto) 8 % (0-9) Eosinophils (%) (Auto) 2 % (0-3) Basophils (%) (Auto) 1 % (0-3) Neutrophils # (Auto) 11.9 x10^3/uL (1.8-7.7) H Lymphocytes # (Auto) 1.2 x10^3/uL (1.0-4.8) Monocytes # (Auto) 1.2 x10^3/uL (0.0-1.1) H Eosinophils # (Auto) 0.3 x10^3/uL (0.0-0.7) Basophils # (Auto) 0.1 x10^3/uL (0.0-0.2) Sodium Level 131 mmol/L (136-145) L Potassium Level 5.1 mmol/L (3.5-5.1) Chloride Level 95 mmol/L (98-107) L Carbon Dioxide Level 26 mmol/L (21-32) Anion Gap 10 (6-14) Blood Urea Nitrogen 33 mg/dL (7-20) H Creatinine 0.9 mg/dL (0.6-1.0) Estimated GFR (Cockcroft-Gault) 59.8 BUN/Creatinine Ratio 37 (6-20) H Glucose Level 102 mg/dL (70-99) H Calcium Level 9.0 mg/dL (8.5-10.1) Magnesium Level 2.1 mg/dL (1.8-2.4) Total Bilirubin 0.3 mg/dL (0.2-1.0) Aspartate Amino Transferase (AST) 30 U/L (15-37) Alanine Aminotransferase (ALT) 25 U/L (14-59) Alkaline Phosphatase 90 U/L (46-116) Troponin I Quantitative 0.019 ng/mL (0.000-0.055) Total Protein 6.6 g/dL (6.4-8.2) Albumin 3.1 g/dL (3.4-5.0) L Albumin/Globulin Ratio 0.9 (1.0-1.7) L Urine Collection Type Unknown Urine Color Yellow Urine Clarity Clear Urine pH 6.5 (<5.0-8.0) Urine Specific [place] 1.010 (1.000-1.030) Urine Protein Negative mg/dL (NEG-TRACE) Urine Glucose (UA) Negative mg/dL (NEG) Urine Ketones (Stick) Negative mg/dL (NEG) Urine Blood Negative (NEG) Urine Nitrite Negative (NEG) Urine Bilirubin Negative (NEG) Urine Urobilinogen Dipstick 0.2 mg/dL (0.2 mg/dL) Urine Leukocyte Esterase Negative (NEG) Urine RBC 0 /HPF (0-2) Urine WBC Occ /HPF (0-4) Urine Squamous Epithelial Cells Few /LPF Urine Bacteria 0 /HPF (0-FEW) Laboratory Tests 07/30/20 14:45 Laboratory Tests 07/30/20 14:45 ECHOCARDIOGRAM ECHOCARDIOGRAM [facility]: TTE 03/18/2019 Normal left ventricular systolic function. EF~ 60% Elevated left atrial pressure Right ventricular size and systolic function are normal Well seated stented Medtronic 26 mm Evolut Pro bioprosthetic aortic valve with slightly elevated mean gradient of 14 mm Hg. No paravalvular or transvalvular regurgitation Normal estimated peak systolic PA pressure of 22 mmHg ASSESSMENT/PLAN ASSESSMENT/PLAN 1. Weakness with hx of lumbar radiculopathy 2. Left pleural effusion: r/t to RA?, clinically compensated 3. S/P TAVR: 2018 at [facility]. nml EF at that time. Denies CAD at that time 4. RA/OA: recent steroid injection to knee. on sulfasalazine, no methotrexate 5. Hx of multiple falls with recent arthrodesis from T12 to L2 6. HTN: controlled 7. HLP: on statin 8. Thrombocytosis: per PCP 9. Acquired hypothyroidism: on replacement, TSH on goal 10. Chronic hyponatremia 11. LE PAD 12. Chronic LBBB 13. Reported chronic anosmia and ageusia 14. Chronic diastolic CHF Recommendations 1. pro NT BNP, TSH, TTE, Check CK, Rapid covid-19 swab 2. Continue secondary prevention measures. 3. Thoracentesis today, await cytology 4. Unclear if her leg weakness and pain is related to her lumbar issues which was fused late last yr. She received steroid injection to both of her knees a week ago. So far there is no paresthesia involved and does not seem to be aggravated by ambulation. Nevertheless she has been noted with LE PAD and if other avenues of MSK and neuropathic issues have been optimize and her symptoms continue then may need to consider LE angiogram as an outpt. Will further review 2020 arterial duplex. PORSCHE GODOY MD 07/31/201951: CARDIAC CONSULT ASSESSMENT/PLAN ASSESSMENT/PLAN Patient seen and examined. Agree with FLIGHT NURSE's assessment and plan. Left pleural effusion being planned for thoracentesis today. s/p TAVR with 2D echo showing normal LVF with well seated and normally functioning prosthetic AV Chronic diastolic HF compensated We will address PAD as outpatient Thank you for your consultation MELISSA NOBLE APRN Jul 31, 2020 09:39 PORSCHE GODOY MD Jul 31, 2020 19:52
[2020-07-31 10:03] LABS: CALCIUM 8.9 mg/dL (8.5-10.1); CREATININE 0.7 mg/dL (0.6-1.0); GFR 79.9; POTASSIUM 3.9 mmol/L (3.5-5.1)
--- NOTE | 2020-07-31 10:29 | CONS ---
DATE OF CONSULTATION: 07/31/2020 ATTENDING PHYSICIAN: Mari Kimble MD REASON FOR CONSULTATION: The patient was seen at the request of Dr. Tony and Dr. Kimble. HISTORY OF PRESENT ILLNESS: This is an 84-year-old female admitted with generalized weakness and difficulty to walk on 07/30/2020. The patient with known aortic stenosis, status post TAVR at [facility] in 06/2018. The patient also with known hypertension, rheumatoid arthritis, hypothyroidism, not known allergic to any medication. Family history of hypercholesterolemia and hypertension. She lives alone and she had L1 vertebral body compression fracture with retropulsion causing spinal stenosis and underwent lumbar decompression laminectomy and thoracolumbar spinal fusion done in 06/02/2020 at [facility] and she received thoracolumbar support brace for use for about 3 months. She denies any back pain or any numbness or tingling sensation in her extremities. She admits some constipation. She denies any trouble with bladder control. She denies any significant neck or shoulder or knee pain from flareup of rheumatoid arthritis. The patient lives alone, had no steps for her to manage. The patient since admission had radiological studies. Chest x-ray revealed moderate left pleural effusion and with adjacent atelectasis. She denies any shortness of breath or cough or fever, but admits some edema of her feet. PHYSICAL EXAMINATION: On physical examination today revealed an elderly female. She is alert and oriented to time, place, person and circumstance and follows commands appropriately, moves all 4 extremities voluntarily where she had 4+/5 grade muscle strength with relatively increased weakness in hand intrinsic muscles where she had some muscle atrophy, mainly involving thenar eminence muscles, negative Tinel sign over median nerve at the wrist and ulnar nerve at the wrist and elbow and negative Phalen sign at both wrists. She had minimal degree of edema of her feet. She had overgrown toenails. She had equal perception of touch and pinprick sensation bilaterally. Deep tendon reflexes are decreased overall with absent ankle jerks. She is independent with bed mobility and transfers. No significant tenderness to palpation over thoracic or lumbar spine area and straight leg raising test is negative bilaterally. She had some stiffness of both hips and knee joints without any significant pain. I have not tested her transfers or ambulation skills at this time. ASSESSMENT: An elderly female status post thoracolumbar spinal fusion and lumbar decompression laminectomy for treatment of L1 vertebral body compression fracture with retropulsion and spinal stenosis done on 06/02/2020 at [facility] and the patient with known hypertension, aortic stenosis, status post transcatheter aortic valve replacement done at [facility] in 06/2018 with x-ray evidence of pleural effusion and mild atelectasis. The patient with rheumatoid arthritis and hypothyroidism. RECOMMENDATIONS: Agree with the plan for physical therapy and occupational therapy to get her up as tolerated. Dr. Kimble, I appreciate asking me to participate in the care of this interesting patient. I will be glad to follow her with you as needed for her rehabilitation. ARCHANA SANFORD MD DR: MARCIO/porfirio JOB#: [id number] / [id number]
--- NOTE | 2020-07-31 10:29 | NUR ---
SW following. Discussed with RN, pt from home alone, room air, cardiac diet. IR, Cardiology and Dr. Flores consulted. Pt having a thoracentesis with possible chest tube placement. PT/OT ordered. SW will continue to follow.
[2020-07-31] MEDS ORDERED: LIDOCAINE WITH 8.4% SOD BICARB 3 ML DISP.SYRIN. ONE (12:01)
[2020-07-31] MEDS ORDERED: LIDOCAINE WITH 8.4% SOD BICARB 3 ML DISP.SYRIN. INJ ONE (12:15)
[2020-07-31] MEDS ORDERED: LIDOCAINE WITH 8.4% SOD BICARB 3 ML DISP.SYRIN. IJ ONE (12:30)
[2020-07-31] MEDS: ASPIRIN ENTERIC COATED 81 MG TABLET.DR. PO SCH (14:18)
--- NOTE | 2020-07-31 15:46 | RAD ---
Ultrasound-guided right-sided thoracentesis 07/31/2020 1:42 PM Indication: left pleural effusion Procedure: Informed consent was obtained. A timeout procedure was performed. Sonographic evaluation of the left chest was performed demonstrating moderate pleural effusion. The left posterior chest was prepped and draped in sterile fashion. 1% lidocaine without epinephrine was administered for local anesthesia. Real-time ultrasonographic guidance was used in passing a 5 Arabic Yueh catheter into the left pleural space. 900 cc of serous pleural fluid was removed. Samples of fluid were sent to the lab for further evaluation per ordering physician request. The catheter was removed and pressure held to achieve hemostasis. A sterile dressing was applied. No immediate complications were identified. The patient tolerated the procedure well. Impression: Left sided ultrasound-guided thoracentesis
[2020-07-31] MEDS ORDERED: POLYETHYLENE GLYCOL 3350 17 GM PACKET. PO PRN (16:45)
--- NOTE | 2020-07-31 17:50 | CARD ---
MR#: [id number] Date of Study: 07/31/2020 Ordering Physician: MELISSA NOBLE, Referring Physician: MELISSA NOBLE Tech: Aurea Milner [facility] APPROVED REPORT EXAM: Two-dimensional and M-mode echocardiogram with Doppler and color Doppler. Other Information Quality : Good INDICATION Pleural Effusion S/P TAVR Procedure 2D DIMENSIONS RVDd2.3 (2.9-3.5cm)Left Atrium(2D)2.8 (1.6-4.0cm) IVSd0.8 (0.7-1.1cm)Aortic Root(2D)2.2 (2.0-3.7cm) LVDd4.2 (3.9-5.9cm)LVOT Diameter1.9 (1.8-2.4cm) PWd1.0 (0.7-1.1cm)LVDs3.2 (2.5-4.0cm) FS (%) 23.9 %SV38.6 ml LVEF(%)60.0 (>50%) Aortic Valve AoV Peak Donaldo.268.5cm/sAoV VTI42.1cm AO Peak GR.28.8mmHgLVOT Peak Donaldo.171.7cm/s AO Mean GR.18mmHgAVA (VMAX)1.89cm2 SHANNAN (VTI)1.60cm2 Mitral Valve MV E Pkahyiyl05.8cm/sMV DECEL FRXI679ul MV A Uspogwlk248.1cm/sE/A Ratio0.7 Pulmonary Valve PV Peak Pcldpedk774.8cm/s Tricuspid Valve TR P. Cfahwmxu969vc/sRAP LDZKJPJU8ceZs TR Peak Gr.76aoZfNKMK02ldSz Pulmonary Vein S1 Srzsqchq78.8cm/sD2 Bljbgydp75.9cm/s LEFT VENTRICLE The left ventricle is normal size. There is normal left ventricular wall thickness. The left ventricu lar systolic function is normal. The Ejection Fraction is 60-65%. There is normal LV segmental wall m otion. Transmitral Doppler flow pattern is Grade I-abnormal relaxation pattern. RIGHT VENTRICLE The right ventricle is normal size. The right ventricular systolic function is normal. ATRIA The left atrium size is normal. The right atrium size is normal. The interatrial septum is intact wit h no evidence for an atrial septal defect or patent foramen ovale as noted on 2-D or Doppler imaging. AORTIC VALVE Doppler and Color Flow revealed no significant aortic regurgitation. Calculated aortic valve area is 1.6 cm2 with maximum pressure gradient of 29 mmHg and mean pressure gradient of 18 mmHg. s/p TAVR wit h well seated and normally functioning prosthetic valve. MITRAL VALVE The mitral valve is calcified but opens well. Mitral annular calcification is mild. There is no evide nce of mitral valve prolapse. There is no mitral valve stenosis. Doppler and Color-flow revealed trac e mitral regurgitation. TRICUSPID VALVE The tricuspid valve is normal in structure and function. Doppler and Color Flow revealed trace tricus pid regurgitation. There is moderate pulmonary hypertension. The PA pressure was estimated at 52 mmHg . There is no tricuspid valve stenosis. PULMONIC VALVE The pulmonic valve is not well visualized. Doppler and Color Flow revealed mild pulmonic valvular reg urgitation. There is no pulmonic valvular stenosis. GREAT VESSELS The aortic root is normal in size. The ascending aorta is not well seen. The IVC is normal in size an d collapses >50% with inspiration. PERICARDIAL EFFUSION There is no evidence of significant pericardial effusion. Critical Notification Critical Value: No <Conclusion> The left ventricular systolic function is normal. The Ejection Fraction is 60-65%. There is normal LV segmental wall motion. Transmitral Doppler flow pattern is Grade I-abnormal relaxation pattern. s/p TAVR with well seated and normally functioning prosthetic valve. Trace mitral regurgitation. Trace tricuspid regurgitation. There is moderate pulmonary hypertension. The PA pressure was estimated at 52 mmHg. There is no evidence of significant pericardial effusion. Signed by : Jovon Ng, Electronically Approved : 07/31/2020 17:49:59
--- NOTE | 2020-07-31 18:12 | NUR ---
Thoracentesis today 900ml off. No chest tube. Culture sent off
[2020-07-31] MEDS: ATORVASTATIN CALCIUM 20 MG TABLET PO SCH (20:42)
[2020-07-31] MEDS: sulfaSALAzine 500 MG TABLET PO SCH (20:42)
[2020-08-01 02:45] VITALS: BP 155/75
[2020-08-01] MEDS: LEVOTHYROXINE 75 MCG TABLET PO SCH (06:00)
--- NOTE | 2020-08-01 06:10 | NUR ---
C/o sore left elbow, appears swollen. Calazime cream applied to buttocks. Brief changed. No SOB noted or reported.
[2020-08-01 07:00] VITALS: BP 163/74
[2020-08-01 08:14] LABS: BF CLARITY CLEAR; BF COLOR YELLOW; BF SOURCE PLEURAL
[2020-08-01 08:15] LABS: BF MON % 92 %; BF PMN % 8 %; BF RBC COUNT 1031 /cmm (Not Established); BF WBC COUNT 439 /cmm (Not Established)
[2020-08-01] MEDS: ASPIRIN ENTERIC COATED 81 MG TABLET.DR. PO SCH (09:41)
[2020-08-01] MEDS: FOLIC ACID 1 MG TABLET. PO SCH (09:42)
[2020-08-01] MEDS: sulfaSALAzine 500 MG TABLET PO SCH ×2 (09:42→20:20)
[2020-08-01] MEDS: CHOLECALCIFEROL (VITAMIN D3) 1,000 UNIT TABLET PO SCH (09:42)
[2020-08-01] MEDS: LISINOPRIL 20 MG TABLET PO SCH (09:42)
[2020-08-01] MEDS: HYDROcodone/APAP 5/325MG 1 TAB TABLET PO PRN ×2 (09:43→20:21)
[2020-08-01 11:00] VITALS: BP 105/49
--- NOTE | 2020-08-01 11:36 | PDOC ---
[employer] PROGRESS NOTE Date of Service DOS: DATE: 08/01/20 TIME: 11:26 Chief Complaint Chief Complaint Assessment/Plan acute weakness, debility, worsenign over days new left pleural effusion, possibly from cardiac Hc aortic stenosis, s/p valve repair, rheumatoid arthritis, s/p pathologic fx to L1 leg pain and weakness, , chronic knee pain, s/p joint injection Dr. Cueto office last week by his INSTALLATION MANAGER History of Present Illness History of Present Illness Ms. Null, is a 84-year-old female with history of aortic stenosis s/p TAVR at [facility] in June 2018 admit from ER for marked weaknes, worse over 1 week, and severe today. could not get out of bed, was directed to the ER by primary care no LE edema, but left leg pain, 08/01: Patient evaluated bedside. Afebrile, breathing room air. Thoracentesis has been ordered. PT/OT. Continue home medications. Will follow cardiology recommendations. Patient apparently is not on methotrexate anymore but on sulfasalazine at an unknown dose. Will try to obtain accurate home medications from pharmacy. 08/01: Status post left-sided thoracentesis with 900 cc removed. No organisms seen on Gram stain, cultures with no growth to date. Patient breathing comfortably on room air. Participated with PT and I recommended fci. Spoke with Dr. Flores who agrees. Vitals/I&O Vitals/I&O: Vital Signs Date Time Temp Pulse Resp B/P (MAP) Pulse Ox O2 Delivery O2 Flow Rate FiO2 08/01/20 11:00 97.8 103 18 105/49 (67) 96 Room Air 97.8 l I & O 07/31/20 07/31/20 08/01/20 15:00 23:00 07:00 Intake Total 250 ml Output Total 900 ml 0 ml Balance -900 ml 250 ml Physical Exam General: Alert, Oriented X3, Cooperative, No acute distress Heart: Regular rate (no tele), Normal S1, Normal S2 Lungs: Clear Abdomen: Soft, No tenderness Extremities: No cyanosis, No edema Skin: No breakdown, No significant lesion Labs Labs: Laboratory Tests Test 07/31/20 12:25 Body Fluid Source Pleural Body Fluid Color Yellow Body Fluid Clarity Clear Body Fluid pH 7.42 Body Fluid Nucleated Cells 439 /cmm (Not Established) Body Fluid Mononuclear WBCs (%) 92 % Body Fluid Polymorphonuclear Cells 8 % Body Fluid Total RBCs Counted 1031 /cmm (Not Established) Body Fluid Total Protein 3.6 g/dL (.) Body Fluid Lactate Dehydrogenase 158 IU/L (.) Assessment and Plan Assessmemt and Plan Problems Medical Problems: (1) Pleural effusion, left Status: Acute (2) Weakness Status: Acute Comment Review of Relevant I have reviewed the following items cheng (where applicable) has been applied. Medications: Current Medications Medications (Trade) Dose Ordered Sig/Malorie Route PRN Reason Start Time Stop Time Status Last Admin Dose Admin Aspirin (Ecotrin) 81 mg DAILYWBKFT PO 07/31/20 12:00 08/01/20 09:41 Lidocaine HCl (Buffered Lidocaine 1%) 6 ml 1X ONCE IJ 07/31/20 12:30 07/31/20 12:31 DC 07/31/20 12:23 Sulfasalazine (Azulfidine) 1,000 mg BID PO 07/31/20 21:00 08/01/20 09:42 Polyethylene Glycol (miraLAX PACKET) 17 gm PRN DAILY PRN PO CONSTIPATION 07/31/20 16:45 08/01/20 09:43 Justifications for Admission Other Justification CHUCK BUENROSTRO MD Aug 01, 2020 11:36
--- NOTE | 2020-08-01 12:02 | PDOC ---
BELINDA JACKMNA VESSEL ORDINARY SEAMAN 08/01/20 1202: CARDIO Progress Notes Date and Time Date of Service 08/01/20 Time of Evaluation 1145 Subjective Subjective: No Chest Pain, No shortness of breath, No Palpitations Vitals Vitals Vital Signs Date Time Temp Pulse Resp B/P (MAP) Pulse Ox O2 Delivery O2 Flow Rate FiO2 08/01/20 11:00 97.8 103 18 105/49 (67) 96 Room Air 97.8 Weight Weight [ ] Input and Output Intake and Output Intake and Output 08/01/20 06:59 Intake Total 250 ml Output Total 900 ml Balance -650 ml Intake Oral 250 ml Output Urine Total 0 ml Drainage Total 900 ml # Voids 4 Laboratory Labs Laboratory Tests Test 07/31/20 12:25 Body Fluid Source Pleural Body Fluid Color Yellow Body Fluid Clarity Clear Body Fluid pH 7.42 Body Fluid Nucleated Cells 439 /cmm (Not Established) Body Fluid Mononuclear WBCs (%) 92 % Body Fluid Polymorphonuclear Cells 8 % Body Fluid Total RBCs Counted 1031 /cmm (Not Established) Body Fluid Total Protein 3.6 g/dL (.) Body Fluid Lactate Dehydrogenase 158 IU/L (.) Microbiology Micro Microbiology 07/31/20 Gram Stain - Final, Resulted 07/31/20 Aerobic and Anaerobic Culture - Preliminary, Resulted 07/30/20 Blood Culture - Preliminary, Resulted NO GROWTH AFTER 1 DAY Physical Exam HEENT: Neck Supple W Full Motion Chest: Symmetric LUNGS: Other (diminished bases) Heart: S1S2, RRR (SR/SR) Abdomen: Soft N/T Extremities: No Edema Neurology: alert, oriented, follow commands Assessment Assessment 1. Weakness with hx of lumbar radiculopathy and multiple falls 2. Left pleural effusion; s/p thoracentesis 3. S/P TAVR: 2018 at [facility]. Echo with normal LVF with well seated and normally functioning prosthetic AV 4. RA/OA: recent steroid injection to knee. on sulfasalazine, no methotrexate 5. Chronic diastolic CHF; clinically compensated. Follows with Dr. Wilkins with [facility] 6. HTN: controlled 7. HLP: on statin 8. Thrombocytosis: per PCP 9. Acquired hypothyroidism: on replacement, TSH on goal 10. LE PAD 11. Chronic LBBB Recommendations Continue secondary prevention measures. Add metoprolol Outpatient w/u of PAD; will defer to primary wood bucker, Dr. Wilkins Supportive care Justicifation of Admission Dx: Justifications for Admission: Justification of Admission Dx: Yes Comments: Respiratory failure Pleural effusion Valvular disease PORSCHE GODOY MD 08/01/20 2012: CARDIO Progress Notes Assessment Assessment Patient seen and examined. Agree with CITY LETTER CARRIER's assessment and plan. s/p thoracentesis for left pleural effusion, feeling much better s/p TAVR with 2D echo showing normal LVF with well seated and normally functioning prosthetic AV Chronic diastolic HF compensated Consider addressing PAD as outpatient BELINDA JACKMAN APRN Aug 01, 2020 12:02 PORSCHE GODOY MD Aug 01, 2020 20:12
[2020-08-01] MEDS ORDERED: BUPIVACAINE MPF 0.25% 10 ML VIAL. IJ ONE (12:30)
[2020-08-01] MEDS ORDERED: methylPREDNISolone ACETATE 40 MG/ML VIAL. IM ONE (12:30)
--- NOTE | 2020-08-01 12:31 | PDOC ---
PROGRESS NOTES Date of Service DATE: 08/01/20 TIME: 12:25 Subjective Subjective She feels better now. Objective Objective Vital Signs Date Time Temp Pulse Resp B/P (MAP) Pulse Ox O2 Delivery O2 Flow Rate FiO2 08/01/20 11:00 97.8 103 18 105/49 (67) 96 Room Air 97.8 Intake and Output 08/01/20 07:00 Intake Total 250 ml Output Total 900 ml Balance -650 ml Intake Oral 250 ml Output Urine Total 0 ml Drainage Total 900 ml # Voids 4 Physical Exam Physical Exam She is alert,supine in bed and rating lunch and she had less edema of her feet and denies any back pain or SOB. She admits left knee joint pain and not much help from steroid injection done by her primary care physician last week and would like to have another injection if she can. She had crepitus on ROM of her knees. Assessment Assessment Problems Medical Problems: (1) Pleural effusion, left Status: Acute (2) Weakness Status: Acute Plan Plan of Care To proceed with injection to her left knee joint and to also consider transfer to SNF as acute rehab might be too much therapy for her. Comment Review of Relevant I have reviewed the following items cheng (where applicable) has been applied. Labs Laboratory Tests Test 07/30/20 14:45 07/30/20 16:05 07/31/20 08:41 07/31/20 10:50 White Blood Count 14.6 x10^3/uL (4.0-11.0) Red Blood Count 3.45 x10^6/uL (3.50-5.40) Hemoglobin 10.6 g/dL (12.0-15.5) Hematocrit 31.7 % (36.0-47.0) Mean Corpuscular Volume 92 fL (79-100) Mean Corpuscular Hemoglobin 31 pg (25-35) Mean Corpuscular Hemoglobin Concent 33 g/dL (31-37) Red Cell Distribution Width 15.7 % (11.5-14.5) Platelet Count 705 x10^3/uL (140-400) Neutrophils (%) (Auto) 82 % (31-73) Lymphocytes (%) (Auto) 8 % (24-48) Monocytes (%) (Auto) 8 % (0-9) Eosinophils (%) (Auto) 2 % (0-3) Basophils (%) (Auto) 1 % (0-3) Neutrophils # (Auto) 11.9 x10^3/uL (1.8-7.7) Lymphocytes # (Auto) 1.2 x10^3/uL (1.0-4.8) Monocytes # (Auto) 1.2 x10^3/uL (0.0-1.1) Eosinophils # (Auto) 0.3 x10^3/uL (0.0-0.7) Basophils # (Auto) 0.1 x10^3/uL (0.0-0.2) Sodium Level 131 mmol/L (136-145) 131 mmol/L (136-145) Potassium Level 5.1 mmol/L (3.5-5.1) 3.9 mmol/L (3.5-5.1) Chloride Level 95 mmol/L (98-107) 97 mmol/L (98-107) Carbon Dioxide Level 26 mmol/L (21-32) 25 mmol/L (21-32) Anion Gap 10 (6-14) 9 (6-14) Blood Urea Nitrogen 33 mg/dL (7-20) 20 mg/dL (7-20) Creatinine 0.9 mg/dL (0.6-1.0) 0.7 mg/dL (0.6-1.0) Estimated GFR (Cockcroft-Gault) 59.8 79.9 BUN/Creatinine Ratio 37 (6-20) Glucose Level 102 mg/dL (70-99) 107 mg/dL (70-99) Calcium Level 9.0 mg/dL (8.5-10.1) 8.9 mg/dL (8.5-10.1) Magnesium Level 2.1 mg/dL (1.8-2.4) Total Bilirubin 0.3 mg/dL (0.2-1.0) Aspartate Amino Transf (AST/SGOT) 30 U/L (15-37) Alanine Aminotransferase (ALT/SGPT) 25 U/L (14-59) Alkaline Phosphatase 90 U/L (46-116) Troponin I Quantitative 0.019 ng/mL (0.000-0.055) Total Protein 6.6 g/dL (6.4-8.2) Albumin 3.1 g/dL (3.4-5.0) Albumin/Globulin Ratio 0.9 (1.0-1.7) Urine Collection Type Unknown Urine Color Yellow Urine Clarity Clear Urine pH 6.5 (<5.0-8.0) Urine Specific [place] 1.010 (1.000-1.030) Urine Protein Negative mg/dL (NEG-TRACE) Urine Glucose (UA) Negative mg/dL (NEG) Urine Ketones (Stick) Negative mg/dL (NEG) Urine Blood Negative (NEG) Urine Nitrite Negative (NEG) Urine Bilirubin Negative (NEG) Urine Urobilinogen Dipstick 0.2 mg/dL (0.2 mg/dL) Urine Leukocyte Esterase Negative (NEG) Urine RBC 0 /HPF (0-2) Urine WBC Occ /HPF (0-4) Urine Squamous Epithelial Cells Few /LPF Urine Bacteria 0 /HPF (0-FEW) Prothrombin Time 14.1 SEC (11.7-14.0) Prothromb Time International Ratio 1.1 (0.8-1.1) Creatine Kinase 18 U/L (26-192) WB-Vgc-C-Type Natriuretic Peptide 990 pg/mL (0-449) Thyroid Stimulating Hormone (TSH) 0.573 uIU/mL (0.358-3.74) Coronavirus (PCR) Not detected (Not Detected) SARS-CoV-2 Antigen (Rapid) Negative (NEGATIVE) Test 07/31/20 12:25 Body Fluid Source Pleural Body Fluid Color Yellow Body Fluid Clarity Clear Body Fluid pH 7.42 Body Fluid Nucleated Cells 439 /cmm (Not Established) Body Fluid Mononuclear WBCs (%) 92 % Body Fluid Polymorphonuclear Cells 8 % Body Fluid Total RBCs Counted 1031 /cmm (Not Established) Body Fluid Total Protein 3.6 g/dL (.) Body Fluid Lactate Dehydrogenase 158 IU/L (.) Microbiology 07/31/20 Gram Stain - Final, Resulted 07/31/20 Aerobic and Anaerobic Culture - Preliminary, Resulted 07/30/20 Blood Culture - Preliminary, Resulted NO GROWTH AFTER 1 DAY Medications Current Medications Azithromycin 250 ml @ 250 mls/hr 1X ONCE IV Last administered on 07/30/20at 18:50; Start 07/30/20 at 17:15; Stop 07/30/20 at 18:14; Status DC Atorvastatin Calcium (Lipitor) 20 mg HS PO Last administered on 07/31/20at 20:42; Start 07/30/20 at 21:00 Celecoxib (CeleBREX) 100 mg BID PO ; Start 07/30/20 at 21:00; Stop 07/31/20 at 05:43; Status DC Vitamin D (Vitamin D3) 1,000 unit DAILY PO Last administered on 08/01/20at 09:42; Start 07/31/20 at 09:00 Folic Acid (Folic Acid) 1 mg DAILY PO Last administered on 08/01/20at 09:42; Start 07/31/20 at 09:00 Acetaminophen/ Hydrocodone Bitart (Lortab 5/325) 1 tab PRN Q4HRS PRN PO PAIN Last administered on 08/01/20at 09:43; Start 07/30/20 at 20:45 Levothyroxine Sodium (Synthroid) 75 mcg DAILY06 PO Last administered on 07/31/20at 05:38; Start 07/31/20 at 06:00 Lisinopril (Prinivil) 20 mg DAILY PO Last administered on 08/01/20at 09:42; Start 07/31/20 at 09:00 Methotrexate (Rheumatrex) 15 mg Fr@0900 PO ; Start 08/02/20 at 09:00; Stop 07/31/20 at 13:50; Status DC Influenza Virus Vaccine Quadrival (Fluzone Quad Syringe) 0.5 ml ONCE ONCE VAX IM Last administered on 07/31/20at 17:27; Start 07/31/20 at 09:00; Stop 07/31/20 at 09:01; Status DC Furosemide (Lasix) 40 mg DAILY PO ; Start 07/31/20 at 09:00; Stop 07/31/20 at 08:24; Status DC Aspirin (Ecotrin) 81 mg DAILYWBKFT PO Last administered on 08/01/20at 09:41; Start 07/31/20 at 12:00 Lidocaine HCl (Buffered Lidocaine 1%) 3 ml STK-MED ONCE .ROUTE ; Start 07/31/20 at 12:01; Stop 07/31/20 at 12:01; Status DC Lidocaine HCl (Buffered Lidocaine 1%) 3 ml 1X ONCE INJ ; Start 07/31/20 at 12:15; Stop 07/31/20 at 12:16; Status DC Lidocaine HCl (Buffered Lidocaine 1%) 6 ml 1X ONCE IJ Last administered on 07/31/20at 12:23; Start 07/31/20 at 12:30; Stop 07/31/20 at 12:31; Status DC Sulfasalazine (Azulfidine) 1,000 mg BID PO Last administered on 08/01/20at 09:42; Start 07/31/20 at 21:00 Polyethylene Glycol (miraLAX PACKET) 17 gm PRN DAILY PRN PO CONSTIPATION Last administered on 08/01/20at 09:43; Start 07/31/20 at 16:45 Active Scripts Active Celebrex (Celecoxib) 100 Mg Capsule 100 Mg PO BID 14 Days Methotrexate (Methotrexate Sodium) 2.5 Mg Tablet 15 Mg PO FR@0900 30 Days Reported Lipitor (Atorvastatin Calcium) 20 Mg Tablet 20 Mg PO HS Vitamin D3 (Cholecalciferol (Vitamin D3)) 1,000 Unit Tablet 1 Tab PO DAILY Folic Acid 1 Mg Tablet 1 Mg PO DAILY Ferrous Sulfate 325 Mg Tablet 325 Mg PO DAILY Hydrocodone-Apap 5-325 (Hydrocodone Bit/Acetaminophen) 1 Each Tablet 1-2 Tab PO Q 4 HOURS Levothyroxine Sodium 75 Mcg Tablet 75 Mcg PO Lisinopril 20 Mg Tablet 1 Tab PO DAILY Vitals/I & O Vital Sign - Last 24 Hours 07/31/20 07/31/20 07/31/20 07/31/20 12:30 14:18 15:00 15:30 Temp 97.4 97.4 Pulse 101 91 Resp B/P (MAP) 152/70 (97) 102/48 (66) Pulse Ox 93 92 92 O2 Delivery Room Air Room Air Room Air Room Air 07/31/20 07/31/20 07/31/20 08/01/20 19:00 20:00 23:02 02:45 Temp 98.5 98.6 98.6 98.5 98.6 98.6 Pulse 89 96 91 Resp B/P (MAP) 128/57 (80) 126/69 (88) 155/75 (101) Pulse Ox 95 97 93 O2 Delivery Room Air Room Air Room Air Room Air 08/01/20 08/01/20 08/01/20 08/01/20 07:00 08:00 09:42 09:43 Temp 98.2 98.2 Pulse 105 105 Resp B/P (MAP) 163/74 (103) 163/74 Pulse Ox 94 94 O2 Delivery Room Air Room Air Room Air 08/01/20 08/01/20 10:50 11:00 Temp 97.8 97.8 Pulse 103 Resp 19 18 B/P (MAP) 105/49 (67) Pulse Ox 96 96 O2 Delivery Room Air Room Air Intake and Output 07/31/20 07/31/20 08/01/20 15:00 23:00 07:00 Intake Total 250 ml Output Total 900 ml 0 ml Balance -900 ml 250 ml Justifications for Admission Other Justification ARCHANA SANFORD MD Aug 01, 2020 12:31
--- NOTE | 2020-08-01 12:41 | PDOC4 ---
PROCEDURE Procedure At her request,I have injected he rleft knee joint under aseptic skin technique with alcohol skin prep using 1 ml of depo-medrol 40 mg/ 1 ml. solution mixed with 2 ml of ).25% marcaine solution and she tolerated the procedure satisfactorily without any side effects. ARCHANA SANFORD MD Aug 01, 2020 12:41
[2020-08-01 13:06] LABS: BASO # 0.1 x10^3/uL (0.0-0.2); BASO % 1 % (0-3); EOS # 0.2 x10^3/uL (0.0-0.7); EOS % 1 % (0-3); HEMATOCRIT 30.4 % (36.0-47.0); HEMOGLOBIN 10.2 g/dL (12.0-15.5); LYMPH # 0.9 x10^3/uL (1.0-4.8); LYMPH % 6 % (24-48); MEAN CORPUSCULAR HEMOGLOBIN 31 pg (25-35); MEAN CORPUSCULAR HGB CONC 34 g/dL (31-37); MEAN CORPUSCULAR VOLUME 92 fL (79-100); MONO # 0.9 x10^3/uL (0.0-1.1); MONO % 6 % (0-9); NEUT # 12.6 x10^3/uL (1.8-7.7); NEUT % 85 % (31-73); PLATELET COUNT 613 x10^3/uL (140-400); RED BLOOD COUNT 3.31 x10^6/uL (3.50-5.40); RED CELL DISTRIBUTION WIDTH 15.6 % (11.5-14.5); WHITE BLOOD COUNT 14.8 x10^3/uL (4.0-11.0)
--- NOTE | 2020-08-01 14:37 | SNU/HH DC ---
DISCHARGE ORDERS DISCHARGE INFORMATION: DISCHARGE DATE: Aug 01, 2020 FINAL DIAGNOSIS Problems Medical Problems: (1) Pleural effusion, left Status: Acute (2) Weakness Status: Acute CONDITION ON DISCHARGE: Stable CODE STATUS: Code Status: Full CUSTODIAL: SNF STAY <30 DAYS: Yes POST DISCHARGE ORDERS: ACTIVITY ORDERS: Activity as tolerated WEIGHT BEARING STATUS: As tolerated DIET AFTER DISCHARGE: Cardiac WOUND/INCISION CARE: No wound care needed CHECKS AFTER DISCHARGE: CHECKS AFTER DISCHARGE: Check blood press - daily TREATMENT/EQUIPMENT ORDERS: ADAPTIVE EQUIPMENT NEEDED: None Physical Therapy For: Evalulation/Treatment Occupational Therapy For: Evaluation/Treatment DISCHARGE MEDICATIONS: Home Meds Active Scripts Celecoxib (CELEBREX) 100 Mg Capsule, 100 MG PO BID for ARTHRITIS for 14 Days, #28 CAP Prov:FLYNN NORIEGA MD 02/16/19 Methotrexate Sodium (METHOTREXATE) 2.5 Mg Tablet, 15 MG PO Fr@0900 for ARTHRITIS for 30 Days, #4 TAB Prov:FLYNN NORIEGA MD 02/16/19 Reported Medications Atorvastatin Calcium (LIPITOR) 20 Mg Tablet, 20 MG PO HS for FOR CHOLESTEROL, #30 TAB 0 Refills 02/11/19 Cholecalciferol (Vitamin D3) (VITAMIN D3) 1,000 Unit Tablet, 1 TAB PO DAILY for other, #30 TAB 5 Refills 02/11/19 Folic Acid (FOLIC ACID) 1 Mg Tablet, 1 MG PO DAILY for other, TAB 02/11/19 Ferrous Sulfate (FERROUS SULFATE) 325 Mg Tablet, 325 MG PO DAILY, TAB 02/11/19 Hydrocodone Bit/Acetaminophen (HYDROCODONE-APAP 5-325 ) 1 Each Tablet, 1-2 TAB PO q 4 hours for PAIN, #50 TAB 0 Refills 08/20/14 Levothyroxine Sodium (LEVOTHYROXINE SODIUM) 75 Mcg Tablet, 75 MCG PO for THYROID SUPPLEMENT, #30 TAB 0 Refills 08/20/14 Lisinopril (LISINOPRIL) 20 Mg Tablet, 1 TAB PO DAILY, #30 TAB 5 Refills 08/20/14 CHUCK BUENROSTRO MD Aug 01, 2020 14:37
[2020-08-01] MEDS ORDERED: SULF500T PO (14:39)
[2020-08-01 15:00] VITALS: BP 128/60
--- NOTE | 2020-08-01 15:07 | PATHOLOGY ---
Note [facility] Accession Number: [id number] TESTS RESULT FLAG UNITS REF RANGE LAB Clinician Provided Cytology Information No. of containers..01 Other (Miscellaneous) Source: RIGHT PLEURAL FLUID DIAGNOSIS: 02 RIGHT PLEURAL FLUID NEGATIVE FOR MALIGNANT CELLS. FOCALLY REACTIVE MESOTHELIAL CELLS PRESENT WITHIN A BACKGROUND OF CHRONIC AND FEW ACUTE INFLAMMATORY CELLS. THIS INTERPRETATION INCLUDES EVALUATION OF A CELL BLOCK. Signed out by: 02 Quirino Wallace MD, Pathologist NPI- [id number] Performed by: Gracie Cartwright, Rig Builder ([facility]) Gross description: 01 30ML, CLEAR YELLOW, 1 TP 1 CB /LCS 07/31/2020 1719 Local FLAG LEGEND: L-Low Normal,H-High Normal,LL-Alert Low,HH-Alert High <-Panic Low,>-Panic High,A-Abnormal,AA-Critical Abnormal Performed at: 01 [facility] [address] [place] [address] Jose Daniel Rodriguez MD, 02 [facility] [address] [place] [address] Quirino Wallace MD, Specimen Comment: A courtesy copy of this report has been sent to [phone], [phone] Specimen Comment: [id number], Specimen Comment: Report sent to ,DR WEI / DR YU Specimen Comment: A duplicate report has been generated due to demographic updates. Performed at: [address] [facility], [place], [place] [id number] MD Jose Daniel Rodriguez MD Phone: [phone]
[2020-08-01 15:12] LABS: % BANDS 5 % (0-9); % LYMPHS 5 % (24-48); % MONOS 6 % (0-10); % MYELOS 1 % (0-0); % SEGS 83 % (35-66)
[2020-08-01 15:13] LABS: PLT ESTIMATE INCREASED (ADEQUATE)
--- NOTE | 2020-08-01 15:44 | NUR ---
SW following. Discussed with RN, pt is from home alone, room air, cardiac diet, COVID-19 negative. Yesterday PT/OT recommending home health, today acute rehab. LORRIE met with pt and pt's daughter, Leatha at bedside (no isolation precautions at the time). Pt actually wanting senior care rather than acute rehab. Would like referral sent to Marlene Huston at [facility] or [facility]. [facility] does not have any beds, but [facility] does. LORRIE checked with Leatha RE [facility] - she was agreeable. LORRIE faxed referral to [facility], pt is accepted there and at [facility] (in case a bed is available). [facility] can take pt tomorrow. LORRIE received a call from [facility], insurance has approved SNF transfer. Discharge orders faxed to [facility]. RN notified. LORRIE will continue to follow.
--- NOTE | 2020-08-01 17:32 | RAD ---
Examination: Frontal views of the bilateral knees HISTORY: History of degenerative changes COMPARISON: Left knee radiograph from 02/11/2019. Findings/ impression: Right knee: Moderate joint space loss identified in the medial, lateral compartment the knee likely degenerative changes. Left knee: Severe joint space loss identified in the medial, lateral compartments of the left knee, lateral grea ter than medial likely degenerative changes with moderate size osteophyte formation identified in the medial, lateral compartments left knee.. Electronically signed by: Jamal Wheat MD (08/01/2020 5:30 PM) [id number]
[2020-08-01 19:00] VITALS: BP 101/53
[2020-08-01] MEDS: ATORVASTATIN CALCIUM 20 MG TABLET PO SCH (20:21)
[2020-08-01 23:00] VITALS: BP 150/64
[2020-08-02] VITALS (7 sets, daily range): BP systolic 86–116; BP diastolic 39–61
[2020-08-02] MEDS: METOPROLOL IV PUSH 5 MG/5 ML VIAL. IVP PRN ×2 (03:10→03:29)
[2020-08-02] MEDS: HYDROcodone/APAP 5/325MG 1 TAB TABLET PO PRN (03:20)
--- NOTE | 2020-08-02 04:23 | EKG ---
[facility] [address] [place] [address] Test Date: 2020-08-02 Test Time: 03:30:58 Pat Name: IRENE DELGADO Department: Room: 532 1 Gender: F Paper Baler: [place] : 1935 Requested By: MABEL CASILLAS Order Number: [id number] Reading MD: Measurements Intervals [place] Rate: 117 P: -63 TX: 178 QRS: 62 QRSD: 116 T: 103 QT: 328 QTc: 462 Interpretive Statements SINUS TACHYCARDIA ATRIAL PREMATURE COMPLEX(ES) LEFT ATRIAL ABNORMALITY LVH WITH REPOLARIZATION ABNORMALITY ABNORMAL ECG RI6.02 Compared to ECG 07/30/2020 14:49:28 Atrial abnormality now present Sinus rhythm no longer present
--- NOTE | 2020-08-02 04:40 | NUR ---
02:45 A.M noted Patient Heart rate would go up and down approximately 02:50 A.M. to 02:54 A.M., Patient's heart rate stayed between 130's to 172, Patient asymptomatic, stated that she can feel her heart palpitation but is only c/o of Lt. knee injection site pain, had Patient attempt vagal maneuver, unsuccessful, paged Dr. Mitchell and called Respiratory Therapist for stat EKG, new orders received to push Metoprolol 2.5mg IV now and may repeat in 15 minutes, call Dr. Mitchell back if heart rate remains at 115 consistently, EKG shows, Sinus Tachycardia, Atrial premature complex(es), Left atrial abnormality LVH with repolarization abnormality, Abnormal ECG.
[2020-08-02] MEDS: LEVOTHYROXINE 75 MCG TABLET PO SCH (05:29)
--- NOTE | 2020-08-02 07:39 | PDOC ---
[employer] PROGRESS NOTE Date of Service DOS: DATE: 08/02/20 TIME: 07:29 Chief Complaint Chief Complaint Assessment/Plan acute weakness, debility, worsenign over days new left pleural effusion, possibly from cardiac Hc aortic stenosis, s/p valve repair, rheumatoid arthritis, s/p pathologic fx to L1 leg pain and weakness, , chronic knee pain, s/p joint injection Dr. Cueto office last week by his DIETARY MANAGER History of Present Illness History of Present Illness Ms. Null, is a 84-year-old female with history of aortic stenosis s/p TAVR at [facility] in June 2018 admit from ER for marked weaknes, worse over 1 week, and severe today. could not get out of bed, was directed to the ER by primary care no LE edema, but left leg pain, 07/31: Patient evaluated bedside. Afebrile, breathing room air. Thoracentesis has been ordered. PT/OT. Continue home medications. Will follow cardiology recommendations. Patient apparently is not on methotrexate anymore but on sulfasalazine at an unknown dose. Will try to obtain accurate home medications from pharmacy. 08/01: Status post left-sided thoracentesis with 900 cc removed. No organisms seen on Gram stain, cultures with no growth to date. Patient breathing comfortably on room air. Participated with PT and I recommended [facility]. Spoke with Dr. Flores who agrees. 08/02: Seen and evaluated S/P thoracentesis. Cytology of pleural fluid is negative for malignant cells. Some tachycardia noted overnight, treated with metoprolol as needed. She did report left-sided chest pain during this episode of tachycardia. She is again tachycardic this morning with exertion, low blood pressure. Will repeat vitals and consider adding metoprolol succinate. She is approved for SNF, and could possibly still discharge today. Vitals/I&O Vitals/I&O: Vital Signs Date Time Temp Pulse Resp B/P (MAP) Pulse Ox O2 Delivery O2 Flow Rate FiO2 08/02/20 04:21 18 94 Room Air 08/02/20 03:29 141 106/57 08/02/20 03:08 99.1 99.1 I & O 08/01/20 08/01/20 08/02/20 15:00 23:00 07:00 Output Total 0 ml Balance 0 ml Physical Exam General: Alert, Oriented X3, Cooperative, No acute distress Heart: Other (Tachycardic) Lungs: Clear Abdomen: Soft, No tenderness Extremities: No cyanosis, No edema Skin: No breakdown, No significant lesion Labs Labs: Laboratory Tests Test 08/01/20 12:55 White Blood Count 14.8 x10^3/uL (4.0-11.0) Red Blood Count 3.31 x10^6/uL (3.50-5.40) Hemoglobin 10.2 g/dL (12.0-15.5) Hematocrit 30.4 % (36.0-47.0) Mean Corpuscular Volume 92 fL (79-100) Mean Corpuscular Hemoglobin 31 pg (25-35) Mean Corpuscular Hemoglobin Concent 34 g/dL (31-37) Red Cell Distribution Width 15.6 % (11.5-14.5) Platelet Count 613 x10^3/uL (140-400) Neutrophils (%) (Auto) 85 % (31-73) Lymphocytes (%) (Auto) 6 % (24-48) Monocytes (%) (Auto) 6 % (0-9) Eosinophils (%) (Auto) 1 % (0-3) Basophils (%) (Auto) 1 % (0-3) Neutrophils # (Auto) 12.6 x10^3/uL (1.8-7.7) Lymphocytes # (Auto) 0.9 x10^3/uL (1.0-4.8) Monocytes # (Auto) 0.9 x10^3/uL (0.0-1.1) Eosinophils # (Auto) 0.2 x10^3/uL (0.0-0.7) Basophils # (Auto) 0.1 x10^3/uL (0.0-0.2) Segmented Neutrophils % 83 % (35-66) Band Neutrophils % 5 % (0-9) Lymphocytes % 5 % (24-48) Monocytes % 6 % (0-10) Myelocytes % 1 % (0-0) Platelet Estimate Increased (ADEQUATE) C-Reactive Protein, Quantitative 78.0 mg/L (0-3.3) Assessment and Plan Assessmemt and Plan Problems Medical Problems: (1) Pleural effusion, left Status: Acute (2) Weakness Status: Acute Comment Review of Relevant I have reviewed the following items cheng (where applicable) has been applied. Medications: Current Medications Medications (Trade) Dose Ordered Sig/Malorie Route PRN Reason Start Time Stop Time Status Last Admin Dose Admin Metoprolol Tartrate (Lopressor Vial) 2.5 mg PRN Q15MIN PRN IVP TACHYCARDIA 08/02/20 03:00 08/02/20 03:29 Justifications for Admission Other Justification CHUCK BUENROSTRO MD Aug 02, 2020 07:39
[2020-08-02] MEDS: ASPIRIN ENTERIC COATED 81 MG TABLET.DR. PO SCH (08:50)
[2020-08-02] MEDS: FOLIC ACID 1 MG TABLET. PO SCH (08:50)
[2020-08-02] MEDS: CHOLECALCIFEROL (VITAMIN D3) 1,000 UNIT TABLET PO SCH (08:50)
[2020-08-02] MEDS: sulfaSALAzine 500 MG TABLET PO SCH ×2 (08:50→20:52)
[2020-08-02] MEDS: LISINOPRIL 20 MG TABLET PO SCH (09:00)
[2020-08-02] MEDS ORDERED: METHOTREXATE SODIUM 2.5 MG TABLET PO SCH (09:00)
--- NOTE | 2020-08-02 09:05 | NUR ---
PATIENT ALERT AND VERBALLY RESPONSIVE, B/P 90/40, HEART RATE 136, PATIENT DENIES PAIN/DISCOMFORT AT THIS TIME, CALL PLACED TO SOLAR APPLICATIONS DEVELOPMENT ENGINEER AND DR. BUENROSTRO FOR ORDERS, WILL HOLD AM LISINOPRIL.
--- NOTE | 2020-08-02 09:18 | PDOC ---
PROGRESS NOTES Date of Service DATE: 08/02/20 TIME: 09:11 Subjective Subjective She felt weird and had tachycardia last night. She denies any chest pain or SOB or cough and denies any dysuria. Objective Objective Vital Signs Date Time Temp Pulse Resp B/P (MAP) Pulse Ox O2 Delivery O2 Flow Rate FiO2 08/02/20 07:00 98.4 67 16 90/40 (57) 95 Room Air 98.4 Intake and Output 08/02/20 07:00 Output Total 0 ml Balance 0 ml Output Urine Total 0 ml # Voids 4 Physical Exam Physical Exam She is supine in bed and does not seem to be in any acute distress and her WBC remains elevated and her c-reactive protein is also very high. She had significant narrowing of her left knee lateral knee joint line and she is not interested in consideration of TKA at this time. I have given he a prescription for her to get left knee brace. Assessment Assessment Problems Medical Problems: (1) Pleural effusion, left Status: Acute (2) Weakness Status: Acute Plan Plan of Care To evaluate her tachycardia and continued elevation of her WBC and elevated c- reactive protein. Comment Review of Relevant I have reviewed the following items cheng (where applicable) has been applied. Labs Laboratory Tests Test 07/31/20 10:50 07/31/20 12:25 08/01/20 12:55 Coronavirus (PCR) Not detected (Not Detected) SARS-CoV-2 Antigen (Rapid) Negative (NEGATIVE) Body Fluid Source Pleural Body Fluid Color Yellow Body Fluid Clarity Clear Body Fluid pH 7.42 Body Fluid Nucleated Cells 439 /cmm (Not Established) Body Fluid Mononuclear WBCs (%) 92 % Body Fluid Polymorphonuclear Cells 8 % Body Fluid Total RBCs Counted 1031 /cmm (Not Established) Body Fluid Total Protein 3.6 g/dL (.) Body Fluid Lactate Dehydrogenase 158 IU/L (.) White Blood Count 14.8 x10^3/uL (4.0-11.0) Red Blood Count 3.31 x10^6/uL (3.50-5.40) Hemoglobin 10.2 g/dL (12.0-15.5) Hematocrit 30.4 % (36.0-47.0) Mean Corpuscular Volume 92 fL (79-100) Mean Corpuscular Hemoglobin 31 pg (25-35) Mean Corpuscular Hemoglobin Concent 34 g/dL (31-37) Red Cell Distribution Width 15.6 % (11.5-14.5) Platelet Count 613 x10^3/uL (140-400) Neutrophils (%) (Auto) 85 % (31-73) Lymphocytes (%) (Auto) 6 % (24-48) Monocytes (%) (Auto) 6 % (0-9) Eosinophils (%) (Auto) 1 % (0-3) Basophils (%) (Auto) 1 % (0-3) Neutrophils # (Auto) 12.6 x10^3/uL (1.8-7.7) Lymphocytes # (Auto) 0.9 x10^3/uL (1.0-4.8) Monocytes # (Auto) 0.9 x10^3/uL (0.0-1.1) Eosinophils # (Auto) 0.2 x10^3/uL (0.0-0.7) Basophils # (Auto) 0.1 x10^3/uL (0.0-0.2) Segmented Neutrophils % 83 % (35-66) Band Neutrophils % 5 % (0-9) Lymphocytes % 5 % (24-48) Monocytes % 6 % (0-10) Myelocytes % 1 % (0-0) Platelet Estimate Increased (ADEQUATE) C-Reactive Protein, Quantitative 78.0 mg/L (0-3.3) Laboratory Tests Test 08/01/20 12:55 White Blood Count 14.8 x10^3/uL (4.0-11.0) Red Blood Count 3.31 x10^6/uL (3.50-5.40) Hemoglobin 10.2 g/dL (12.0-15.5) Hematocrit 30.4 % (36.0-47.0) Mean Corpuscular Volume 92 fL (79-100) Mean Corpuscular Hemoglobin 31 pg (25-35) Mean Corpuscular Hemoglobin Concent 34 g/dL (31-37) Red Cell Distribution Width 15.6 % (11.5-14.5) Platelet Count 613 x10^3/uL (140-400) Neutrophils (%) (Auto) 85 % (31-73) Lymphocytes (%) (Auto) 6 % (24-48) Monocytes (%) (Auto) 6 % (0-9) Eosinophils (%) (Auto) 1 % (0-3) Basophils (%) (Auto) 1 % (0-3) Neutrophils # (Auto) 12.6 x10^3/uL (1.8-7.7) Lymphocytes # (Auto) 0.9 x10^3/uL (1.0-4.8) Monocytes # (Auto) 0.9 x10^3/uL (0.0-1.1) Eosinophils # (Auto) 0.2 x10^3/uL (0.0-0.7) Basophils # (Auto) 0.1 x10^3/uL (0.0-0.2) Segmented Neutrophils % 83 % (35-66) Band Neutrophils % 5 % (0-9) Lymphocytes % 5 % (24-48) Monocytes % 6 % (0-10) Myelocytes % 1 % (0-0) Platelet Estimate Increased (ADEQUATE) C-Reactive Protein, Quantitative 78.0 mg/L (0-3.3) Microbiology 07/31/20 Gram Stain - Final, Resulted 07/31/20 Aerobic and Anaerobic Culture - Preliminary, Resulted 07/30/20 Blood Culture - Preliminary, Resulted NO GROWTH AFTER 2 DAYS Medications Current Medications Azithromycin 250 ml @ 250 mls/hr 1X ONCE IV Last administered on 07/30/20at 18:50; Start 07/30/20 at 17:15; Stop 07/30/20 at 18:14; Status DC Atorvastatin Calcium (Lipitor) 20 mg HS PO Last administered on 08/01/20at 20:21; Start 07/30/20 at 21:00 Celecoxib (CeleBREX) 100 mg BID PO ; Start 07/30/20 at 21:00; Stop 07/31/20 at 05:43; Status DC Vitamin D (Vitamin D3) 1,000 unit DAILY PO Last administered on 08/02/20at 08:50; Start 07/31/20 at 09:00 Folic Acid (Folic Acid) 1 mg DAILY PO Last administered on 08/02/20at 08:50; Start 07/31/20 at 09:00 Acetaminophen/ Hydrocodone Bitart (Lortab 5/325) 1 tab PRN Q4HRS PRN PO PAIN Last administered on 08/02/20at 03:20; Start 07/30/20 at 20:45 Levothyroxine Sodium (Synthroid) 75 mcg DAILY06 PO Last administered on 08/02/20at 05:29; Start 07/31/20 at 06:00 Lisinopril (Prinivil) 20 mg DAILY PO Last administered on 08/01/20at 09:42; Start 07/31/20 at 09:00 Methotrexate (Rheumatrex) 15 mg Fr@0900 PO ; Start 08/02/20 at 09:00; Stop 07/31/20 at 13:50; Status DC Influenza Virus Vaccine Quadrival (Fluzone Quad Syringe) 0.5 ml ONCE ONCE VAX IM Last administered on 07/31/20at 17:27; Start 07/31/20 at 09:00; Stop 07/31/20 at 09:01; Status DC Furosemide (Lasix) 40 mg DAILY PO ; Start 07/31/20 at 09:00; Stop 07/31/20 at 08:24; Status DC Aspirin (Ecotrin) 81 mg DAILYWBKFT PO Last administered on 08/02/20at 08:50; Start 07/31/20 at 12:00 Lidocaine HCl (Buffered Lidocaine 1%) 3 ml STK-MED ONCE .ROUTE ; Start 07/31/20 at 12:01; Stop 07/31/20 at 12:01; Status DC Lidocaine HCl (Buffered Lidocaine 1%) 3 ml 1X ONCE INJ ; Start 07/31/20 at 12:15; Stop 07/31/20 at 12:16; Status DC Lidocaine HCl (Buffered Lidocaine 1%) 6 ml 1X ONCE IJ Last administered on 07/31/20at 12:23; Start 07/31/20 at 12:30; Stop 07/31/20 at 12:31; Status DC Sulfasalazine (Azulfidine) 1,000 mg BID PO Last administered on 08/02/20at 08:50; Start 07/31/20 at 21:00 Polyethylene Glycol (miraLAX PACKET) 17 gm PRN DAILY PRN PO CONSTIPATION Last administered on 08/01/20at 09:43; Start 07/31/20 at 16:45 Methylprednisolone Acetate (DEPO-Medrol 40MG VIAL) 40 mg 1X ONCE IM ; Start 08/01/20 at 12:30; Stop 08/01/20 at 12:31; Status DC Bupivacaine HCl (Sensorcaine-Mpf 0.25%) 10 ml 1X ONCE IJ ; Start 08/01/20 at 12:30; Stop 08/01/20 at 12:31; Status DC Metoprolol Tartrate (Lopressor Vial) 2.5 mg PRN Q15MIN PRN IVP TACHYCARDIA Last administered on 08/02/20at 03:29; Start 08/02/20 at 03:00 Active Scripts Active Azulfidine (Sulfasalazine) 500 Mg Tablet 1,000 Mg PO BID Celebrex (Celecoxib) 100 Mg Capsule 100 Mg PO BID 14 Days Reported Lipitor (Atorvastatin Calcium) 20 Mg Tablet 20 Mg PO HS Vitamin D3 (Cholecalciferol (Vitamin D3)) 1,000 Unit Tablet 1 Tab PO DAILY Folic Acid 1 Mg Tablet 1 Mg PO DAILY Hydrocodone-Apap 5-325 (Hydrocodone Bit/Acetaminophen) 1 Each Tablet 1-2 Tab PO Q 4 HOURS Levothyroxine Sodium 75 Mcg Tablet 75 Mcg PO Lisinopril 20 Mg Tablet 1 Tab PO DAILY Vitals/I & O Vital Sign - Last 24 Hours 08/01/20 08/01/20 08/01/20 08/01/20 09:42 09:43 10:50 11:00 Temp 97.8 97.8 Pulse 105 103 Resp 21 19 18 B/P (MAP) 163/74 105/49 (67) Pulse Ox 94 96 96 O2 Delivery Room Air Room Air Room Air 08/01/20 08/01/20 08/01/20 08/01/20 15:00 19:00 20:00 20:21 Temp 97.9 98.0 97.9 98.0 Pulse 95 106 Resp 16 16 18 B/P (MAP) 128/60 (82) 101/53 (69) Pulse Ox 97 98 97 O2 Delivery Room Air Room Air Room Air Room Air 08/01/20 08/01/20 08/02/20 08/02/20 21:21 23:00 03:08 03:10 Temp 98.1 99.1 98.1 99.1 Pulse 100 57 160 Resp 18 16 20 B/P (MAP) 150/64 (92) 114/54 (74) 101/61 Pulse Ox 96 96 94 O2 Delivery Room Air Room Air Room Air 08/02/20 08/02/20 08/02/20 08/02/20 03:20 03:29 04:21 07:00 Pulse 141 Resp 18 18 B/P (MAP) 106/57 91/39 (56) Pulse Ox 94 94 O2 Delivery Room Air Room Air 08/02/20 07:00 Temp 98.4 98.4 Pulse 67 Resp 16 B/P (MAP) 90/40 (57) Pulse Ox 95 O2 Delivery Room Air Intake and Output 08/01/20 08/01/20 08/02/20 15:00 23:00 07:00 Output Total 0 ml Balance 0 ml Justifications for Admission Other Justification ARCHANA SANFORD MD Aug 02, 2020 09:18
--- NOTE | 2020-08-02 10:10 | NUR ---
DR. BUENROSTRO ON THE UNIT AND ORDERS GIVEN TO ADMINISTER 1000[facility] BOLUS OF NS, WILL INFORM CARBIDE DIE MAKER THAT DISCHARGE COULD POSSIBLY BE CANCELLED TODAY.
--- NOTE | 2020-08-02 11:29 | PDOC ---
MELISSA NOBLE TERRAZZO LAYER HELPER 08/02/20 1129: CARDIO Progress Notes Date and Time Date of Service 08/02/2020 Time of Evaluation 1120 Subjective Subjective: No Chest Pain, No shortness of breath, No Palpitations Vitals Vitals Vital Signs Date Time Temp Pulse Resp B/P (MAP) Pulse Ox O2 Delivery O2 Flow Rate FiO2 08/02/20 09:00 67 90/40 08/02/20 07:00 98.4 16 95 Room Air 98.4 Weight Weight [ ] Input and Output Intake and Output Intake and Output 08/02/20 07:00 Output Total 0 ml Balance 0 ml Output Urine Total 0 ml # Voids 4 Laboratory Labs Laboratory Tests Test 08/01/20 12:55 White Blood Count 14.8 x10^3/uL (4.0-11.0) Red Blood Count 3.31 x10^6/uL (3.50-5.40) Hemoglobin 10.2 g/dL (12.0-15.5) Hematocrit 30.4 % (36.0-47.0) Mean Corpuscular Volume 92 fL (79-100) Mean Corpuscular Hemoglobin 31 pg (25-35) Mean Corpuscular Hemoglobin Concent 34 g/dL (31-37) Red Cell Distribution Width 15.6 % (11.5-14.5) Platelet Count 613 x10^3/uL (140-400) Neutrophils (%) (Auto) 85 % (31-73) Lymphocytes (%) (Auto) 6 % (24-48) Monocytes (%) (Auto) 6 % (0-9) Eosinophils (%) (Auto) 1 % (0-3) Basophils (%) (Auto) 1 % (0-3) Neutrophils # (Auto) 12.6 x10^3/uL (1.8-7.7) Lymphocytes # (Auto) 0.9 x10^3/uL (1.0-4.8) Monocytes # (Auto) 0.9 x10^3/uL (0.0-1.1) Eosinophils # (Auto) 0.2 x10^3/uL (0.0-0.7) Basophils # (Auto) 0.1 x10^3/uL (0.0-0.2) Segmented Neutrophils % 83 % (35-66) Band Neutrophils % 5 % (0-9) Lymphocytes % 5 % (24-48) Monocytes % 6 % (0-10) Myelocytes % 1 % (0-0) Platelet Estimate Increased (ADEQUATE) C-Reactive Protein, Quantitative 78.0 mg/L (0-3.3) Microbiology Micro Microbiology 07/31/20 Gram Stain - Final, Resulted 07/31/20 Aerobic and Anaerobic Culture - Preliminary, Resulted 07/30/20 Blood Culture - Preliminary, Resulted NO GROWTH AFTER 2 DAYS Physical Exam HEENT: Neck Supple W Full Motion Chest: Symmetric LUNGS: Other (diminished bases) Heart: irregularly irregular (atrial flutter) Abdomen: Soft N/T Extremities: No Edema Neurology: alert, oriented, follow commands Assessment Assessment 1. Weakness with hx of lumbar radiculopathy and falls 2. Left pleural effusion; s/p thoracentesis, cytology pending 3. S/P TAVR: 2018 at [facility]. Echo with normal LVF with well seated and normally functioning prosthetic AV 4. RA/OA: recent steroid injection to knee. on sulfasalazine, no methotrexate 5. Chronic diastolic CHF; clinically compensated. Follows with Dr. Wilkins with MAC 6. HTN: controlled 7. HLP: on statin 8. Thrombocytosis: per PCP 9. Acquired hypothyroidism: on replacement, TSH on goal 10. LE PAD 11. Chronic LBBB 12. Atrial flutter with RVR: New. variable conduction 13. Hypotension: due to poor hydration and RVR. no CP or SOA. Recommendations Unable to place on routine BB due to low BP. Will DC lisinopril to allow room for further BB. Dig IV x1 Continue secondary prevention measures. Add metoprolol Outpatient w/u of PAD; will defer to primary community development aide, Dr. Wilkins Supportive care, BMP and Mg Will discuss eliquis, risks and benefits discussed and would be willing to go fo low dose eliquis. Discussed further about falls and reported 2 falls in 1 yr. last episode was 04/2020. No frequent dizziness. No PUD or any bleeding hx. Will need MCOT and defer this to her primary community development aide. ASA. Will consider for eliquis. IVF bolus Justicifation of Admission Dx: Justifications for Admission: Justification of Admission Dx: Yes PORSCHE GODOY MD 08/03/20 0927: CARDIO Progress Notes Assessment Assessment Patient seen and examined 08/02/20. Agree with KNIFE OPERATOR's assessment and plan. s/p thoracentesis for left pleural effusion, feeling much better s/p TAVR with 2D echo showing normal LVF with well seated and normally functioning prosthetic AV Atrial flutter with RVR, newly diagnosed. Agree with digoxin X1 for rate control Stop lisinopril today and initiate metoprolol tomorrow Start low dose eliquis for stroke prophylaxis and consider outpatient cardioversion Chronic diastolic HF compensated Consider addressing PAD as outpatient MELISSA NOBLE APRN Aug 02, 2020 11:29 PORSCHE GODOY MD Aug 03, 2020 09:27
[2020-08-02] MEDS ORDERED: DIGOXIN IV 500 MCG/2 ML AMPUL. IV ONE (11:30)
--- NOTE | 2020-08-02 11:45 | NUR ---
IV DIDOXIN GIVEN ORDERED PER TAO ADAME, PATIENT INFORMED TO WHY MEDICATION WAS BEING GIVEN AND EXPECTED OUTCOMES, PATIENTS HEART RATE CONTINUE TO RANGE FROM 112-130-142, PATIENT REMAINS ASYMPTOMATIC AND WITHOUT COMPLAINTS, WILL MONITOR.
[2020-08-02 11:56] LABS: CALCIUM 8.6 mg/dL (8.5-10.1); CREATININE 0.9 mg/dL (0.6-1.0); GFR 59.8; POTASSIUM 4.6 mmol/L (3.5-5.1)
[2020-08-02] MEDS ORDERED: IV NORMAL SALINE 1000ML BAG 1,000 ML IV ONE (12:00)
--- NOTE | 2020-08-02 13:19 | NUR ---
SW following. Discussed with RN, LORRIE had arranged 1400 pharmacy picking tech time for pt to discharge to [facility]. However discharge has been cancelled due to BP and heart rate. Facility and family notified. Pt added to the weekend discharge list. LORRIE will continue to follow.
[2020-08-02] MEDS: METOPROLOL IV PUSH 5 MG/5 ML VIAL. IVP SCH (18:00)
[2020-08-02] MEDS: ATORVASTATIN CALCIUM 20 MG TABLET PO SCH (20:52)
[2020-08-02] MEDS: IV NORMAL SALINE 1000ML BAG 1,000 ML IV SCH (20:53)
[2020-08-03 03:10] VITALS: BP 148/70
[2020-08-03] MEDS: IV NORMAL SALINE 1000ML BAG 1,000 ML IV SCH ×3 (06:25→21:09)
[2020-08-03] MEDS: LEVOTHYROXINE 75 MCG TABLET PO SCH (06:25)
[2020-08-03] MEDS: METOPROLOL IV PUSH 5 MG/5 ML VIAL. IVP SCH ×2 (06:26)
[2020-08-03 07:59] VITALS: BP 130/43
[2020-08-03] MEDS: ASPIRIN ENTERIC COATED 81 MG TABLET.DR. PO SCH (08:36)
[2020-08-03] MEDS: CHOLECALCIFEROL (VITAMIN D3) 1,000 UNIT TABLET PO SCH (08:36)
[2020-08-03] MEDS: sulfaSALAzine 500 MG TABLET PO SCH ×2 (08:37→21:08)
[2020-08-03] MEDS: FOLIC ACID 1 MG TABLET. PO SCH (08:37)
[2020-08-03 08:46] LABS: BASO # 0.1 x10^3/uL (0.0-0.2); BASO % 1 % (0-3); EOS # 0.1 x10^3/uL (0.0-0.7); EOS % 1 % (0-3); HEMATOCRIT 29.4 % (36.0-47.0); HEMOGLOBIN 9.6 g/dL (12.0-15.5); LYMPH # 1.1 x10^3/uL (1.0-4.8); LYMPH % 8 % (24-48); MEAN CORPUSCULAR HEMOGLOBIN 31 pg (25-35); MEAN CORPUSCULAR HGB CONC 33 g/dL (31-37); MEAN CORPUSCULAR VOLUME 93 fL (79-100); MONO # 1.7 x10^3/uL (0.0-1.1); MONO % 11 % (0-9); NEUT # 11.9 x10^3/uL (1.8-7.7); NEUT % 79 % (31-73); PLATELET COUNT 557 x10^3/uL (140-400); RED BLOOD COUNT 3.15 x10^6/uL (3.50-5.40); RED CELL DISTRIBUTION WIDTH 15.5 % (11.5-14.5)
[2020-08-03 09:09] LABS: CALCIUM 8.5 mg/dL (8.5-10.1); CREATININE 0.8 mg/dL (0.6-1.0); GFR 68.5; POTASSIUM 4.5 mmol/L (3.5-5.1)
[2020-08-03] MEDS: APIXABAN 2.5 MG TABLET. PO SCH ×2 (09:37→21:08)
[2020-08-03] MEDS: METOPROLOL TART IMMED RELEASE 25 MG TABLET. PO SCH ×2 (09:37→21:08)
[2020-08-03] MEDS ORDERED: ANTI-COAG MONITOR BY PHARMACY. MC PRN (09:45)
--- NOTE | 2020-08-03 11:07 | PDOC ---
PROGRESS NOTES Date of Service DATE: 08/03/20 TIME: 11:04 Subjective Subjective She feels better. She denies any chest pain or SOB and she feels better with knee joint pain. Objective Objective Vital Signs Date Time Temp Pulse Resp B/P (MAP) Pulse Ox O2 Delivery O2 Flow Rate FiO2 08/03/20 09:37 91 130/43 08/03/20 08:00 Room Air 08/03/20 07:59 98.0 18 97 98.0 Intake and Output 08/03/20 07:00 Intake Total 1510 ml Balance 1510 ml Intake Oral 510 ml Other 1000 ml Physical Exam Physical Exam She is alert,supine in bed and wants to wait until her daughter come in before getting up and she did not get up yesterday.She moves all 4 extremities actively. Her WBC count remains elevated. She is anemic. Assessment Assessment Problems Medical Problems: (1) Pleural effusion, left Status: Acute (2) Weakness Status: Acute Plan Plan of Care To get her up as tolerated. Comment Review of Relevant I have reviewed the following items cheng (where applicable) has been applied. Labs Laboratory Tests Test 08/01/20 12:55 08/02/20 11:35 08/03/20 08:15 White Blood Count 14.8 x10^3/uL (4.0-11.0) 15.0 x10^3/uL (4.0-11.0) Red Blood Count 3.31 x10^6/uL (3.50-5.40) 3.15 x10^6/uL (3.50-5.40) Hemoglobin 10.2 g/dL (12.0-15.5) 9.6 g/dL (12.0-15.5) Hematocrit 30.4 % (36.0-47.0) 29.4 % (36.0-47.0) Mean Corpuscular Volume 92 fL (79-100) 93 fL (79-100) Mean Corpuscular Hemoglobin 31 pg (25-35) 31 pg (25-35) Mean Corpuscular Hemoglobin Concent 34 g/dL (31-37) 33 g/dL (31-37) Red Cell Distribution Width 15.6 % (11.5-14.5) 15.5 % (11.5-14.5) Platelet Count 613 x10^3/uL (140-400) 557 x10^3/uL (140-400) Neutrophils (%) (Auto) 85 % (31-73) 79 % (31-73) Lymphocytes (%) (Auto) 6 % (24-48) 8 % (24-48) Monocytes (%) (Auto) 6 % (0-9) 11 % (0-9) Eosinophils (%) (Auto) 1 % (0-3) 1 % (0-3) Basophils (%) (Auto) 1 % (0-3) 1 % (0-3) Neutrophils # (Auto) 12.6 x10^3/uL (1.8-7.7) 11.9 x10^3/uL (1.8-7.7) Lymphocytes # (Auto) 0.9 x10^3/uL (1.0-4.8) 1.1 x10^3/uL (1.0-4.8) Monocytes # (Auto) 0.9 x10^3/uL (0.0-1.1) 1.7 x10^3/uL (0.0-1.1) Eosinophils # (Auto) 0.2 x10^3/uL (0.0-0.7) 0.1 x10^3/uL (0.0-0.7) Basophils # (Auto) 0.1 x10^3/uL (0.0-0.2) 0.1 x10^3/uL (0.0-0.2) Segmented Neutrophils % 83 % (35-66) Band Neutrophils % 5 % (0-9) Lymphocytes % 5 % (24-48) Monocytes % 6 % (0-10) Myelocytes % 1 % (0-0) Platelet Estimate Increased (ADEQUATE) C-Reactive Protein, Quantitative 78.0 mg/L (0-3.3) Sodium Level 128 mmol/L (136-145) 132 mmol/L (136-145) Potassium Level 4.6 mmol/L (3.5-5.1) 4.5 mmol/L (3.5-5.1) Chloride Level 94 mmol/L (98-107) 99 mmol/L (98-107) Carbon Dioxide Level 23 mmol/L (21-32) 24 mmol/L (21-32) Anion Gap 11 (6-14) 9 (6-14) Blood Urea Nitrogen 23 mg/dL (7-20) 23 mg/dL (7-20) Creatinine 0.9 mg/dL (0.6-1.0) 0.8 mg/dL (0.6-1.0) Estimated GFR (Cockcroft-Gault) 59.8 68.5 Glucose Level 116 mg/dL (70-99) 102 mg/dL (70-99) Calcium Level 8.6 mg/dL (8.5-10.1) 8.5 mg/dL (8.5-10.1) Magnesium Level 2.1 mg/dL (1.8-2.4) Laboratory Tests Test 08/02/20 11:35 08/03/20 08:15 Sodium Level 128 mmol/L (136-145) 132 mmol/L (136-145) Potassium Level 4.6 mmol/L (3.5-5.1) 4.5 mmol/L (3.5-5.1) Chloride Level 94 mmol/L (98-107) 99 mmol/L (98-107) Carbon Dioxide Level 23 mmol/L (21-32) 24 mmol/L (21-32) Anion Gap 11 (6-14) 9 (6-14) Blood Urea Nitrogen 23 mg/dL (7-20) 23 mg/dL (7-20) Creatinine 0.9 mg/dL (0.6-1.0) 0.8 mg/dL (0.6-1.0) Estimated GFR (Cockcroft-Gault) 59.8 68.5 Glucose Level 116 mg/dL (70-99) 102 mg/dL (70-99) Calcium Level 8.6 mg/dL (8.5-10.1) 8.5 mg/dL (8.5-10.1) Magnesium Level 2.1 mg/dL (1.8-2.4) White Blood Count 15.0 x10^3/uL (4.0-11.0) Red Blood Count 3.15 x10^6/uL (3.50-5.40) Hemoglobin 9.6 g/dL (12.0-15.5) Hematocrit 29.4 % (36.0-47.0) Mean Corpuscular Volume 93 fL (79-100) Mean Corpuscular Hemoglobin 31 pg (25-35) Mean Corpuscular Hemoglobin Concent 33 g/dL (31-37) Red Cell Distribution Width 15.5 % (11.5-14.5) Platelet Count 557 x10^3/uL (140-400) Neutrophils (%) (Auto) 79 % (31-73) Lymphocytes (%) (Auto) 8 % (24-48) Monocytes (%) (Auto) 11 % (0-9) Eosinophils (%) (Auto) 1 % (0-3) Basophils (%) (Auto) 1 % (0-3) Neutrophils # (Auto) 11.9 x10^3/uL (1.8-7.7) Lymphocytes # (Auto) 1.1 x10^3/uL (1.0-4.8) Monocytes # (Auto) 1.7 x10^3/uL (0.0-1.1) Eosinophils # (Auto) 0.1 x10^3/uL (0.0-0.7) Basophils # (Auto) 0.1 x10^3/uL (0.0-0.2) Microbiology 07/31/20 Gram Stain - Final, Resulted 07/31/20 Aerobic and Anaerobic Culture - Preliminary, Resulted 07/30/20 Blood Culture - Preliminary, Resulted NO GROWTH AFTER 3 DAYS Medications Current Medications Azithromycin 250 ml @ 250 mls/hr 1X ONCE IV Last administered on 07/30/20at 18:50; Start 07/30/20 at 17:15; Stop 07/30/20 at 18:14; Status DC Atorvastatin Calcium (Lipitor) 20 mg HS PO Last administered on 08/02/20at 20:52; Start 07/30/20 at 21:00 Celecoxib (CeleBREX) 100 mg BID PO ; Start 07/30/20 at 21:00; Stop 07/31/20 at 05:43; Status DC Vitamin D (Vitamin D3) 1,000 unit DAILY PO Last administered on 08/03/20at 08:36; Start 07/31/20 at 09:00 Folic Acid (Folic Acid) 1 mg DAILY PO Last administered on 08/03/20at 08:37; Start 07/31/20 at 09:00 Acetaminophen/ Hydrocodone Bitart (Lortab 5/325) 1 tab PRN Q4HRS PRN PO PAIN Last administered on 08/02/20at 03:20; Start 07/30/20 at 20:45 Levothyroxine Sodium (Synthroid) 75 mcg DAILY06 PO Last administered on 08/03/20at 06:25; Start 07/31/20 at 06:00 Lisinopril (Prinivil) 20 mg DAILY PO Last administered on 08/01/20at 09:42; Start 07/31/20 at 09:00; Stop 08/02/20 at 14:54; Status DC Methotrexate (Rheumatrex) 15 mg Fr@0900 PO ; Start 08/02/20 at 09:00; Stop 07/31/20 at 13:50; Status DC Influenza Virus Vaccine Quadrival (Fluzone Quad Syringe) 0.5 ml ONCE ONCE VAX IM Last administered on 07/31/20at 17:27; Start 07/31/20 at 09:00; Stop 07/31/20 at 09:01; Status DC Furosemide (Lasix) 40 mg DAILY PO ; Start 07/31/20 at 09:00; Stop 07/31/20 at 08:24; Status DC Aspirin (Ecotrin) 81 mg DAILYWBKFT PO Last administered on 08/03/20at 08:36; Start 07/31/20 at 12:00 Lidocaine HCl (Buffered Lidocaine 1%) 3 ml STK-MED ONCE .ROUTE ; Start 07/31/20 at 12:01; Stop 07/31/20 at 12:01; Status DC Lidocaine HCl (Buffered Lidocaine 1%) 3 ml 1X ONCE INJ ; Start 07/31/20 at 12:15; Stop 07/31/20 at 12:16; Status DC Lidocaine HCl (Buffered Lidocaine 1%) 6 ml 1X ONCE IJ Last administered on 07/31/20at 12:23; Start 07/31/20 at 12:30; Stop 07/31/20 at 12:31; Status DC Sulfasalazine (Azulfidine) 1,000 mg BID PO Last administered on 08/03/20at 08:37; Start 07/31/20 at 21:00 Polyethylene Glycol (miraLAX PACKET) 17 gm PRN DAILY PRN PO CONSTIPATION Last administered on 08/01/20at 09:43; Start 07/31/20 at 16:45 Methylprednisolone Acetate (DEPO-Medrol 40MG VIAL) 40 mg 1X ONCE IM ; Start 08/01/20 at 12:30; Stop 08/01/20 at 12:31; Status DC Bupivacaine HCl (Sensorcaine-Mpf 0.25%) 10 ml 1X ONCE IJ ; Start 08/01/20 at 12:30; Stop 08/01/20 at 12:31; Status DC Metoprolol Tartrate (Lopressor Vial) 2.5 mg PRN Q15MIN PRN IVP TACHYCARDIA Last administered on 08/02/20at 03:29; Start 08/02/20 at 03:00; Stop 08/02/20 at 14:54; Status DC Digoxin (Lanoxin) 500 mcg 1X ONCE IV Last administered on 08/02/20at 11:45; Start 08/02/20 at 11:30; Stop 08/02/20 at 11:31; Status DC Sodium Chloride 1,000 ml @ 1,000 mls/hr 1X ONCE IV Last administered on 08/02/20at 12:00; Start 08/02/20 at 12:00; Stop 08/02/20 at 12:59; Status DC Metoprolol Tartrate (Lopressor Vial) 5 mg Q6HRS IVP Last administered on 08/03/20at 06:26; Start 08/02/20 at 18:00; Stop 08/03/20 at 09:30; Status DC Sodium Chloride 1,000 ml @ 100 mls/hr Q10H IV Last administered on 08/03/20at 06:25; Start 08/02/20 at 19:45 Metoprolol Tartrate (Lopressor) 25 mg BID PO Last administered on 08/03/20at 09:37; Start 08/03/20 at 09:30 Apixaban (Eliquis) 2.5 mg BID PO Last administered on 08/03/20at 09:37; Start 08/03/20 at 09:30 Info (Anti-Coagulation Monitoring By Pharmacy) 1 each PRN DAILY PRN MC SEE COMMENTS; Start 08/03/20 at 09:45 Active Scripts Active Azulfidine (Sulfasalazine) 500 Mg Tablet 1,000 Mg PO BID Celebrex (Celecoxib) 100 Mg Capsule 100 Mg PO BID 14 Days Reported Lipitor (Atorvastatin Calcium) 20 Mg Tablet 20 Mg PO HS Vitamin D3 (Cholecalciferol (Vitamin D3)) 1,000 Unit Tablet 1 Tab PO DAILY Folic Acid 1 Mg Tablet 1 Mg PO DAILY Hydrocodone-Apap 5-325 (Hydrocodone Bit/Acetaminophen) 1 Each Tablet 1-2 Tab PO Q 4 HOURS Levothyroxine Sodium 75 Mcg Tablet 75 Mcg PO Lisinopril 20 Mg Tablet 1 Tab PO DAILY Vitals/I & O Vital Sign - Last 24 Hours 08/02/20 08/02/20 08/02/20 08/02/20 11:45 13:46 15:00 18:00 Temp 98.4 98.4 Pulse 67 111 110 Resp 16 B/P (MAP) 89/48 101/41 (61) 111/49 (69) 95/49 Pulse Ox 96 O2 Delivery Room Air 08/02/20 08/02/20 08/02/20 08/03/20 19:00 20:15 23:17 03:10 Temp 98.3 99.2 99.4 98.3 99.2 99.4 Pulse 106 102 108 Resp 20 20 20 B/P (MAP) 112/43 (66) 116/61 (79) 148/70 (96) Pulse Ox 96 96 95 O2 Delivery Room Air Room Air Room Air Room Air 08/03/20 08/03/20 08/03/20 08/03/20 06:26 07:59 08:00 09:37 Temp 98.0 98.0 Pulse 108 91 91 Resp 18 B/P (MAP) 148/70 130/43 (72) 130/43 Pulse Ox 97 O2 Delivery Room Air Room Air Intake and Output 08/02/20 08/02/20 08/03/20 15:00 23:00 07:00 Intake Total 1120 ml 390 ml Balance 1120 ml 390 ml Justifications for Admission Other Justification ARCHANA SANFORD MD Aug 03, 2020 11:07
[2020-08-03 11:59] VITALS: BP 132/53
[2020-08-03] MEDS: FERROUS SULFATE 325 MG TABLET. PO SCH (12:29)
[2020-08-03 15:59] VITALS: BP 128/50
--- NOTE | 2020-08-03 16:42 | PDOC ---
[employer] PROGRESS NOTE Date of Service DOS: DATE: 08/03/20 TIME: 16:39 Chief Complaint Chief Complaint Assessment/Plan acute weakness, debility, worsenign over days new left pleural effusion, possibly from cardiac Hc aortic stenosis, s/p valve repair, rheumatoid arthritis, s/p pathologic fx to L1 leg pain and weakness, , chronic knee pain, s/p joint injection Dr. Cueto office last week by his [employer] History of Present Illness History of Present Illness Ms. Null, is a 84-year-old female with history of aortic stenosis s/p TAVR at [facility] in June 2018 admit from ER for marked weaknes, worse over 1 week, and severe today. could not get out of bed, was directed to the ER by primary care no LE edema, but left leg pain, 07/31: Patient evaluated bedside. Afebrile, breathing room air. Thoracentesis has been ordered. PT/OT. Continue home medications. Will follow cardiology recommendations. Patient apparently is not on methotrexate anymore but on sulfasalazine at an unknown dose. Will try to obtain accurate home medications from pharmacy. 08/01: Status post left-sided thoracentesis with 900 cc removed. No organisms seen on Gram stain, cultures with no growth to date. Patient breathing comfortably on room air. Participated with PT and I recommended nursing home. Spoke with Dr. Flores who agrees. 08/02: Seen and evaluated S/P thoracentesis. Cytology of pleural fluid is negative for malignant cells. Some tachycardia noted overnight, treated with metoprolol as needed. She did report left-sided chest pain during this episode of tachycardia. She is again tachycardic this morning with exertion, low blood pressure. Will repeat vitals and consider adding metoprolol succinate. She is approved for SNF, and could possibly still discharge today. 08/03: Patient seen at bedside. She feels okay today. Heart rate well controlled on metoprolol 25 mg twice daily. She will need this new medication upon discharge. Plan is to get patient to SNF on Wednesday. Vitals/I&O Vitals/I&O: Vital Signs Date Time Temp Pulse Resp B/P (MAP) Pulse Ox O2 Delivery O2 Flow Rate FiO2 08/03/20 11:59 98.5 87 18 132/53 (79) 100 Room Air 98.5 I & O 08/02/20 08/02/2008/03/21 15:00 23:00 07:00 Intake Total 1120 ml 390 ml Balance 1120 ml 390 ml Physical Exam General: Alert, Oriented X3, Cooperative, No acute distress Heart: Regular rate, Other Lungs: Clear Abdomen: Soft, No tenderness Extremities: No cyanosis, No edema Skin: No breakdown, No significant lesion Labs Labs: Laboratory Tests Test 08/03/20 08:15 White Blood Count 15.0 x10^3/uL (4.0-11.0) Red Blood Count 3.15 x10^6/uL (3.50-5.40) Hemoglobin 9.6 g/dL (12.0-15.5) Hematocrit 29.4 % (36.0-47.0) Mean Corpuscular Volume 93 fL (79-100) Mean Corpuscular Hemoglobin 31 pg (25-35) Mean Corpuscular Hemoglobin Concent 33 g/dL (31-37) Red Cell Distribution Width 15.5 % (11.5-14.5) Platelet Count 557 x10^3/uL (140-400) Neutrophils (%) (Auto) 79 % (31-73) Lymphocytes (%) (Auto) 8 % (24-48) Monocytes (%) (Auto) 11 % (0-9) Eosinophils (%) (Auto) 1 % (0-3) Basophils (%) (Auto) 1 % (0-3) Neutrophils # (Auto) 11.9 x10^3/uL (1.8-7.7) Lymphocytes # (Auto) 1.1 x10^3/uL (1.0-4.8) Monocytes # (Auto) 1.7 x10^3/uL (0.0-1.1) Eosinophils # (Auto) 0.1 x10^3/uL (0.0-0.7) Basophils # (Auto) 0.1 x10^3/uL (0.0-0.2) Sodium Level 132 mmol/L (136-145) Potassium Level 4.5 mmol/L (3.5-5.1) Chloride Level 99 mmol/L (98-107) Carbon Dioxide Level 24 mmol/L (21-32) Anion Gap 9 (6-14) Blood Urea Nitrogen 23 mg/dL (7-20) Creatinine 0.8 mg/dL (0.6-1.0) Estimated GFR (Cockcroft-Gault) 68.5 Glucose Level 102 mg/dL (70-99) Calcium Level 8.5 mg/dL (8.5-10.1) Assessment and Plan Assessmemt and Plan Problems Medical Problems: (1) Pleural effusion, left Status: Acute (2) Weakness Status: Acute Comment Review of Relevant I have reviewed the following items cheng (where applicable) has been applied. Medications: Current Medications Medications (Trade) Dose Ordered Sig/Malorie Route PRN Reason Start Time Stop Time Status Last Admin Dose Admin Metoprolol Tartrate (Lopressor Vial) 5 mg Q6HRS IVP 08/02/20 18:00 08/03/20 09:30 DC 08/03/20 06:26 Sodium Chloride 1,000 ml @ 100 mls/hr Q10H IV 08/02/20 19:45 08/03/20 06:25 Metoprolol Tartrate (Lopressor) 25 mg BID PO 08/03/20 09:30 08/03/20 09:37 Apixaban (Eliquis) 2.5 mg BID PO 08/03/20 09:30 08/03/20 09:37 Ferrous Sulfate (Feosol) 325 mg DAILYWBKFT PO 08/03/20 12:00 08/03/20 12:29 Justifications for Admission Other Justification CHUCK BUENROSTRO MD Aug 03, 2020 16:42
[2020-08-03 19:00] VITALS: BP 138/58
[2020-08-03] MEDS: ATORVASTATIN CALCIUM 20 MG TABLET PO SCH (21:08)
[2020-08-03 23:04] VITALS: BP 134/52
[2020-08-04 03:05] VITALS: BP 138/55
[2020-08-04] MEDS: LEVOTHYROXINE 75 MCG TABLET PO SCH (06:07)
[2020-08-04 07:59] VITALS: BP 166/62
--- NOTE | 2020-08-04 08:42 | PDOC ---
[employer] PROGRESS NOTE Date of Service DOS: DATE: 08/04/20 TIME: 08:41 Chief Complaint Chief Complaint Assessment/Plan acute weakness, debility, worsenign over days new left pleural effusion, possibly from cardiac Hc aortic stenosis, s/p valve repair, rheumatoid arthritis, s/p pathologic fx to L1 leg pain and weakness, , chronic knee pain, s/p joint injection Dr. Cueto office last week by his CABLE STRANDER Atrial flutter History of Present Illness History of Present Illness Ms. Null, is a 84-year-old female with history of aortic stenosis s/p TAVR at [facility] in June 2018 admit from ER for marked weaknes, worse over 1 week, and severe today. could not get out of bed, was directed to the ER by primary care no LE edema, but left leg pain, 07/31: Patient evaluated bedside. Afebrile, breathing room air. Thoracentesis has been ordered. PT/OT. Continue home medications. Will follow cardiology recommendations. Patient apparently is not on methotrexate anymore but on sulfasalazine at an unknown dose. Will try to obtain accurate home medications from pharmacy. 08/01: Status post left-sided thoracentesis with 900 cc removed. No organisms seen on Gram stain, cultures with no growth to date. Patient breathing comfortably on room air. Participated with PT and I recommended [facility]. Spoke with Dr. Flores who agrees. 08/02: Seen and evaluated S/P thoracentesis. Cytology of pleural fluid is negati ve for malignant cells. Some tachycardia noted overnight, treated with metoprolol as needed. She did report left-sided chest pain during this episode of tachycardia. She is again tachycardic this morning with exertion, low blood pressure. Will repeat vitals and consider adding metoprolol succinate. She is approved for SNF, and could possibly still discharge today. 08/03: Patient seen at bedside. She feels okay today. Heart rate well controlled on metoprolol 25 mg twice daily. She will need this new medication upon discharge. Plan is to get patient to SNF on Wednesday. 08/04: Heart rate well controlled on metoprolol twice daily. No acute events overnight. Patient plan to discharge to SNF on Wednesday. She will need metoprolol 25 mg twice daily and Eliquis 2.5 mg twice daily upon discharge. Denies chest pain or SOB. Vitals/I&O Vitals/I&O: Vital Signs Date Time Temp Pulse Resp B/P (MAP) Pulse Ox O2 Delivery O2 Flow Rate FiO2 08/04/20 03:05 98.1 63 18 138/55 (82) 94 Room Air 98.1 I & O 08/03/20 08/03/20 08/04/20 15:00 23:00 07:00 Intake Total 220 ml Output Total 300 ml Balance 220 ml -300 ml Physical Exam General: Alert, Oriented X3, Cooperative, No acute distress Heart: Regular rate, Other Lungs: Clear Abdomen: Soft, No tenderness Extremities: No cyanosis, No edema Skin: No breakdown, No significant lesion Assessment and Plan Assessmemt and Plan Problems Medical Problems: (1) Pleural effusion, left Status: Acute (2) Weakness Status: Acute Comment Review of Relevant I have reviewed the following items cheng (where applicable) has been applied. Medications: Current Medications Medications (Trade) Dose Ordered Sig/Malorie Route PRN Reason Start Time Stop Time Status Last Admin Dose Admin Metoprolol Tartrate (Lopressor) 25 mg BID PO 08/03/20 09:30 08/03/20 21:08 Apixaban (Eliquis) 2.5 mg BID PO 08/03/20 09:30 08/03/20 21:08 Ferrous Sulfate (Feosol) 325 mg DAILYWBKFT PO 08/03/20 12:00 08/03/20 12:29 Justifications for Admission Other Justification CHUCK BUENROSTRO MD Aug 04, 2020 08:42
[2020-08-04 08:52] LABS: BASO # 0.2 x10^3/uL (0.0-0.2); BASO % 2 % (0-3); EOS # 0.2 x10^3/uL (0.0-0.7); EOS % 2 % (0-3); HEMOGLOBIN 9.1 g/dL (12.0-15.5); LYMPH # 1.3 x10^3/uL (1.0-4.8); LYMPH % 10 % (24-48); MEAN CORPUSCULAR HEMOGLOBIN 30 pg (25-35); MEAN CORPUSCULAR HGB CONC 33 g/dL (31-37); MEAN CORPUSCULAR VOLUME 92 fL (79-100); MONO # 1.3 x10^3/uL (0.0-1.1); MONO % 11 % (0-9); NEUT # 9.4 x10^3/uL (1.8-7.7); NEUT % 76 % (31-73); PLATELET COUNT 587 x10^3/uL (140-400); RED BLOOD COUNT 3.03 x10^6/uL (3.50-5.40); RED CELL DISTRIBUTION WIDTH 15.5 % (11.5-14.5); WHITE BLOOD COUNT 12.4 x10^3/uL (4.0-11.0)
[2020-08-04] MEDS: APIXABAN 2.5 MG TABLET. PO SCH ×2 (09:08→20:11)
[2020-08-04] MEDS: CHOLECALCIFEROL (VITAMIN D3) 1,000 UNIT TABLET PO SCH (09:08)
[2020-08-04] MEDS: METOPROLOL TART IMMED RELEASE 25 MG TABLET. PO SCH ×2 (09:08→20:12)
[2020-08-04] MEDS: FOLIC ACID 1 MG TABLET. PO SCH (09:08)
[2020-08-04] MEDS: FERROUS SULFATE 325 MG TABLET. PO SCH (09:08)
[2020-08-04] MEDS: ASPIRIN ENTERIC COATED 81 MG TABLET.DR. PO SCH (09:08)
[2020-08-04] MEDS: sulfaSALAzine 500 MG TABLET PO SCH ×2 (09:08→20:12)
[2020-08-04 09:39] LABS: CALCIUM 8.2 mg/dL (8.5-10.1); CREATININE 0.7 mg/dL (0.6-1.0); GFR 79.9; POTASSIUM 4.3 mmol/L (3.5-5.1)
[2020-08-04] MEDS: IV NORMAL SALINE 1000ML BAG 1,000 ML IV SCH ×2 (11:45→20:14)
[2020-08-04 11:59] VITALS: BP 160/58
[2020-08-04 15:59] VITALS: BP 154/63
[2020-08-04 19:00] VITALS: BP 138/54
[2020-08-04] MEDS: ATORVASTATIN CALCIUM 20 MG TABLET PO SCH (20:11)
[2020-08-04 23:03] VITALS: BP 153/56
[2020-08-05 03:10] VITALS: BP 169/56
[2020-08-05] MEDS: LEVOTHYROXINE 75 MCG TABLET PO SCH (05:35)
[2020-08-05 07:00] VITALS: BP 180/71
[2020-08-05] MEDS: IV NORMAL SALINE 1000ML BAG 1,000 ML IV SCH (07:45)
[2020-08-05 08:41] LABS: BASO # 0.1 x10^3/uL (0.0-0.2); BASO % 1 % (0-3); EOS # 0.1 x10^3/uL (0.0-0.7); EOS % 1 % (0-3); HEMOGLOBIN 9.8 g/dL (12.0-15.5); LYMPH # 1.1 x10^3/uL (1.0-4.8); LYMPH % 7 % (24-48); MEAN CORPUSCULAR HEMOGLOBIN 30 pg (25-35); MEAN CORPUSCULAR HGB CONC 33 g/dL (31-37); MEAN CORPUSCULAR VOLUME 92 fL (79-100); MONO # 1.4 x10^3/uL (0.0-1.1); MONO % 9 % (0-9); NEUT # 12.4 x10^3/uL (1.8-7.7); NEUT % 82 % (31-73); PLATELET COUNT 692 x10^3/uL (140-400); RED BLOOD COUNT 3.27 x10^6/uL (3.50-5.40); RED CELL DISTRIBUTION WIDTH 15.5 % (11.5-14.5); WHITE BLOOD COUNT 15.1 x10^3/uL (4.0-11.0)
--- NOTE | 2020-08-05 09:07 | PDOC ---
PROGRESS NOTES Date of Service: DATE: 08/05/20 TIME: 09:07 Chief Complaint Chief Complaint HOSPITAL SUMMARY ADMITTED 07-30-20 DATE OF DISCHARGE 08-05-[address] SANFORD procedures thoracentesis complication none follow up snf PCP TODAY, REG PCP DR WEI 2-3 WEEKS DISCHARGE DX acute weakness, debility, worsening over days new left pleural effusion, possibly from cardiac Hc aortic stenosis, s/p valve repair, rheumatoid arthritis, s/p pathologic fx to L1 leg pain and weakness, , chronic knee pain, s/p joint injection Dr. Wei office last week by his [employer] Atrial flutter, History of Present Illness History of Present Illness REASON FOR HOSPITAL STAY Ms. Null, is a 84-year-old female with history of aortic stenosis s/p TAVR at [facility] in June 2018 admit from ER for marked weaknes, worse over 1 week, and severe could not get out of bed, was directed to the ER by primary care no LE edema, but left leg pain, 07/31: Patient evaluated bedside. Afebrile, breathing room air. Thoracentesis ordered. PT/OT. Continue home medications. Will follow cardiology recommendations. Patient apparently is not on methotrexate anymore but on sulfasalazine at an unknown dose. Will try to obtain accurate home medications from pharmacy. 08/01: Status post left-sided thoracentesis with 900 cc removed. No organisms seen on Gram stain, cultures with no growth to date. Patient breathing comfortably on room air. Participated with PT and I recommended skilled nursi ng. Spoke with Dr. Sanford who agrees. 08/02: Seen and evaluated S/P thoracentesis. Cytology of pleural fluid is negative for malignant cells. Some tachycardia noted overnight, treated with metoprolol as needed. She did report left-sided chest pain during this episode of tachycardia. She is again tachycardic this morning with exertion, low blood pressure. Will repeat vitals and consider adding metoprolol succinate. She is approved for SNF, and could possibly still discharge today. 08/03: Patient seen at bedside. She feels okay today. Heart rate well controlled on metoprolol 25 mg twice daily. She will need this new medication upon discharge. Plan is to get patient to SNF on Wednesday. 08/04: Heart rate well controlled on metoprolol twice daily. No acute events overnight. Patient plan to discharge to SNF on Wednesday. She will need metoprolol 25 mg twice daily and Eliquis 2.5 mg twice daily upon discharge. Denies chest pain or SOB. 08/05 d/c today to snf Vitals Vitals Vital Signs Date Time Temp Pulse Resp B/P (MAP) Pulse Ox O2 Delivery O2 Flow Rate FiO2 08/05/20 07:00 98.3 74 18 180/71 (107) 91 Room Air 98.3 Physical Exam General: Alert, Oriented X3, Cooperative, No acute distress Heart: Regular rate, Other Lungs: Clear Abdomen: Soft, No tenderness Extremities: No clubbing, No cyanosis, No edema Skin: No breakdown, No significant lesion Labs LABS PATIENT: IRENE NULL ACCOUNT: [id number] : 1935 LOCATION: [address] [place] [address] AGE: 84 SEX: F EXAM STATUS: ADM IN ORD. PHYSICIAN: MERLENE YU MD REASON: left pleural effusion PROCEDURE: [id number] THORACENT/ASPIR W/ IMG Ultrasound-guided right-sided thoracentesis 07/31/2020 1:42 PM Indication: left pleural effusion Procedure: Informed consent was obtained. A timeout procedure was performed. Sonographic evaluation of the left chest was performed demonstrating moderate pleural effusion. The left posterior chest was prepped and draped in sterile fashion. 1% lidocaine without epinephrine was administered for local anesthesia. Real-time ultrasonographic guidance was used in passing a 5 Chinese Yueh catheter into the left pleural space. 900 cc of serous pleural fluid was removed. Samples of fluid were sent to the lab for further evaluation per ordering physician request. The catheter was removed and pressure held to achieve hemostasis. A sterile dressing was applied. No immediate complications were identified. The patient tolerated the procedure well. Impression: Left sided ultrasound-guided thoracentesis DICTATED and SIGNED BY: ANANYA JUAREZ MD DATE: 07/31/20 [id number] XR CHEST 1V History: Reason: generalized weakness / Spl. Instructions: / History: Comparison: February 11, 2019 Findings: Moderate left pleural effusion with adjacent opacity. Chronic right-sided rib fractures. No pneumothorax. Unchanged heart size. TAVR noted. Postop changes upper lumbar spine. Impression: 1. Moderate left pleural effusion with adjacent atelectasis. Electronically signed by: Franko Shepherd DO (07/30/2020 3:54 PM) [id number] DICTATED and SIGNED BY: FRANKO SHEPHERD DO DATE: 07/30/20 [id number] Laboratory Tests Test 08/05/20 07:30 White Blood Count 15.1 x10^3/uL (4.0-11.0) Red Blood Count 3.27 x10^6/uL (3.50-5.40) Hemoglobin 9.8 g/dL (12.0-15.5) Hematocrit 30.0 % (36.0-47.0) Mean Corpuscular Volume 92 fL (79-100) Mean Corpuscular Hemoglobin 30 pg (25-35) Mean Corpuscular Hemoglobin Concent 33 g/dL (31-37) Red Cell Distribution Width 15.5 % (11.5-14.5) Platelet Count 692 x10^3/uL (140-400) Neutrophils (%) (Auto) 82 % (31-73) Lymphocytes (%) (Auto) 7 % (24-48) Monocytes (%) (Auto) 9 % (0-9) Eosinophils (%) (Auto) 1 % (0-3) Basophils (%) (Auto) 1 % (0-3) Neutrophils # (Auto) 12.4 x10^3/uL (1.8-7.7) Lymphocytes # (Auto) 1.1 x10^3/uL (1.0-4.8) Monocytes # (Auto) 1.4 x10^3/uL (0.0-1.1) Eosinophils # (Auto) 0.1 x10^3/uL (0.0-0.7) Basophils # (Auto) 0.1 x10^3/uL (0.0-0.2) Assessment and Plan Assessmemt and Plan Problems Medical Problems: (1) Pleural effusion, left Status: Acute (2) Weakness Status: Acute Comment Review of Relevant I have reviewed the following items cheng (where applicable) has been applied. Labs Laboratory Tests Test 1/24/21 07:55 08/05/20 07:30 White Blood Count 12.4 x10^3/uL (4.0-11.0) 15.1 x10^3/uL (4.0-11.0) Red Blood Count 3.03 x10^6/uL (3.50-5.40) 3.27 x10^6/uL (3.50-5.40) Hemoglobin 9.1 g/dL (12.0-15.5) 9.8 g/dL (12.0-15.5) Hematocrit 28.0 % (36.0-47.0) 30.0 % (36.0-47.0) Mean Corpuscular Volume 92 fL (79-100) 92 fL (79-100) Mean Corpuscular Hemoglobin 30 pg (25-35) 30 pg (25-35) Mean Corpuscular Hemoglobin Concent 33 g/dL (31-37) 33 g/dL (31-37) Red Cell Distribution Width 15.5 % (11.5-14.5) 15.5 % (11.5-14.5) Platelet Count 587 x10^3/uL (140-400) 692 x10^3/uL (140-400) Neutrophils (%) (Auto) 76 % (31-73) 82 % (31-73) Lymphocytes (%) (Auto) 10 % (24-48) 7 % (24-48) Monocytes (%) (Auto) 11 % (0-9) 9 % (0-9) Eosinophils (%) (Auto) 2 % (0-3) 1 % (0-3) Basophils (%) (Auto) 2 % (0-3) 1 % (0-3) Neutrophils # (Auto) 9.4 x10^3/uL (1.8-7.7) 12.4 x10^3/uL (1.8-7.7) Lymphocytes # (Auto) 1.3 x10^3/uL (1.0-4.8) 1.1 x10^3/uL (1.0-4.8) Monocytes # (Auto) 1.3 x10^3/uL (0.0-1.1) 1.4 x10^3/uL (0.0-1.1) Eosinophils # (Auto) 0.2 x10^3/uL (0.0-0.7) 0.1 x10^3/uL (0.0-0.7) Basophils # (Auto) 0.2 x10^3/uL (0.0-0.2) 0.1 x10^3/uL (0.0-0.2) Sodium Level 130 mmol/L (136-145) Potassium Level 4.3 mmol/L (3.5-5.1) Chloride Level 98 mmol/L (98-107) Carbon Dioxide Level 24 mmol/L (21-32) Anion Gap 8 (6-14) Blood Urea Nitrogen 20 mg/dL (7-20) Creatinine 0.7 mg/dL (0.6-1.0) Estimated GFR (Cockcroft-Gault) 79.9 Glucose Level 86 mg/dL (70-99) Calcium Level 8.2 mg/dL (8.5-10.1) Laboratory Tests Test 08/05/20 07:30 White Blood Count 15.1 x10^3/uL (4.0-11.0) Red Blood Count 3.27 x10^6/uL (3.50-5.40) Hemoglobin 9.8 g/dL (12.0-15.5) Hematocrit 30.0 % (36.0-47.0) Mean Corpuscular Volume 92 fL (79-100) Mean Corpuscular Hemoglobin 30 pg (25-35) Mean Corpuscular Hemoglobin Concent 33 g/dL (31-37) Red Cell Distribution Width 15.5 % (11.5-14.5) Platelet Count 692 x10^3/uL (140-400) Neutrophils (%) (Auto) 82 % (31-73) Lymphocytes (%) (Auto) 7 % (24-48) Monocytes (%) (Auto) 9 % (0-9) Eosinophils (%) (Auto) 1 % (0-3) Basophils (%) (Auto) 1 % (0-3) Neutrophils # (Auto) 12.4 x10^3/uL (1.8-7.7) Lymphocytes # (Auto) 1.1 x10^3/uL (1.0-4.8) Monocytes # (Auto) 1.4 x10^3/uL (0.0-1.1) Eosinophils # (Auto) 0.1 x10^3/uL (0.0-0.7) Basophils # (Auto) 0.1 x10^3/uL (0.0-0.2) Microbiology 07/31/20 Gram Stain - Final, Resulted 07/31/20 Aerobic and Anaerobic Culture - Preliminary, Resulted 07/30/20 Blood Culture - Final, Complete NO GROWTH AFTER 5 DAYS Medications Current Medications Azithromycin 250 ml @ 250 mls/hr 1X ONCE IV Last administered on 07/30/20at 18:50; Start 07/30/20 at 17:15; Stop 07/30/20 at 18:14; Status DC Atorvastatin Calcium (Lipitor) 20 mg HS PO Last administered on 08/04/20at 20:11; Start 07/30/20 at 21:00 Celecoxib (CeleBREX) 100 mg BID PO ; Start 07/30/20 at 21:00; Stop 07/31/20 at 05:43; Status DC Vitamin D (Vitamin D3) 1,000 unit DAILY PO Last administered on 08/04/20at 09:08; Start 07/31/20 at 09:00 Folic Acid (Folic Acid) 1 mg DAILY PO Last administered on 08/04/20at 09:08; Start 07/31/20 at 09:00 Acetaminophen/ Hydrocodone Bitart (Lortab 5/325) 1 tab PRN Q4HRS PRN PO PAIN Last administered on 08/02/20at 03:20; Start 07/30/20 at 20:45 Levothyroxine Sodium (Synthroid) 75 mcg DAILY06 PO Last administered on 08/05/20at 05:35; Start 07/31/20 at 06:00 Lisinopril (Prinivil) 20 mg DAILY PO Last administered on 08/01/20at 09:42; Start 07/31/20 at 09:00; Stop 08/02/20 at 14:54; Status DC Methotrexate (Rheumatrex) 15 mg Fr@0900 PO ; Start 08/02/20 at 09:00; Stop 07/31/20 at 13:50; Status DC Influenza Virus Vaccine Quadrival (Fluzone Quad Syringe) 0.5 ml ONCE ONCE VAX IM Last administered on 07/31/20at 17:27; Start 07/31/20 at 09:00; Stop 07/31/20 at 09:01; Status DC Furosemide (Lasix) 40 mg DAILY PO ; Start 07/31/20 at 09:00; Stop 07/31/20 at 08:24; Status DC Aspirin (Ecotrin) 81 mg DAILYWBKFT PO Last administered on 08/04/20at 09:08; Start 07/31/20 at 12:00 Lidocaine HCl (Buffered Lidocaine 1%) 3 ml STK-MED ONCE .ROUTE ; Start 07/31/20 at 12:01; Stop 07/31/20 at 12:01; Status DC Lidocaine HCl (Buffered Lidocaine 1%) 3 ml 1X ONCE INJ ; Start 07/31/20 at 12:15; Stop 07/31/20 at 12:16; Status DC Lidocaine HCl (Buffered Lidocaine 1%) 6 ml 1X ONCE IJ Last administered on 07/31/20at 12:23; Start 07/31/20 at 12:30; Stop 07/31/20 at 12:31; Status DC Sulfasalazine (Azulfidine) 1,000 mg BID PO Last administered on 08/04/20at 20:12; Start 07/31/20 at 21:00 Polyethylene Glycol (miraLAX PACKET) 17 gm PRN DAILY PRN PO CONSTIPATION Last administered on 08/01/20at 09:43; Start 07/31/20 at 16:45 Methylprednisolone Acetate (DEPO-Medrol 40MG VIAL) 40 mg 1X ONCE IM ; Start 08/01/20 at 12:30; Stop 08/01/20 at 12:31; Status DC Bupivacaine HCl (Sensorcaine-Mpf 0.25%) 10 ml 1X ONCE IJ ; Start 08/01/20 at 12:30; Stop 08/01/20 at 12:31; Status DC Metoprolol Tartrate (Lopressor Vial) 2.5 mg PRN Q15MIN PRN IVP TACHYCARDIA Last administered on 08/02/20at 03:29; Start 08/02/20 at 03:00; Stop 08/02/20 at 14:54; Status DC Digoxin (Lanoxin) 500 mcg 1X ONCE IV Last administered on 08/02/20at 11:45; Start 08/02/20 at 11:30; Stop 08/02/20 at 11:31; Status DC Sodium Chloride 1,000 ml @ 1,000 mls/hr 1X ONCE IV Last administered on 08/02/20at 12:00; Start 08/02/20 at 12:00; Stop 08/02/20 at 12:59; Status DC Metoprolol Tartrate (Lopressor Vial) 5 mg Q6HRS IVP Last administered on 08/03/20at 06:26; Start 08/02/20 at 18:00; Stop 08/03/20 at 09:30; Status DC Sodium Chloride 1,000 ml @ 100 mls/hr Q10H IV Last administered on 08/03/20at 06:25; Start 08/02/20 at 19:45 Metoprolol Tartrate (Lopressor) 25 mg BID PO Last administered on 08/04/20at 20:12; Start 08/03/20 at 09:30 Apixaban (Eliquis) 2.5 mg BID PO Last administered on 08/04/20at 20:11; Start 08/03/20 at 09:30 Info (Anti-Coagulation Monitoring By Pharmacy) 1 each PRN DAILY PRN MC SEE COMMENTS Last administered on 08/04/20at 14:33; Start 08/03/20 at 09:45 Ferrous Sulfate (Feosol) 325 mg DAILYWBKFT PO Last administered on 08/04/20at 09:08; Start 08/03/20 at 12:00 Active Scripts Active Azulfidine (Sulfasalazine) 500 Mg Tablet 1,000 Mg PO BID Celebrex (Celecoxib) 100 Mg Capsule 100 Mg PO BID 14 Days Reported Lipitor (Atorvastatin Calcium) 20 Mg Tablet 20 Mg PO HS Vitamin D3 (Cholecalciferol (Vitamin D3)) 1,000 Unit Tablet 1 Tab PO DAILY Folic Acid 1 Mg Tablet 1 Mg PO DAILY Hydrocodone-Apap 5-325 (Hydrocodone Bit/Acetaminophen) 1 Each Tablet 1-2 Tab PO Q 4 HOURS Levothyroxine Sodium 75 Mcg Tablet 75 Mcg PO Lisinopril 20 Mg Tablet 1 Tab PO DAILY Vitals/I & O Vital Sign - Last 24 Hours 08/04/20 08/04/20 08/04/20 08/04/20 09:08 11:59 15:59 19:00 Temp 98.1 97.9 97.7 98.1 97.9 97.7 Pulse 63 61 69 68 Resp 18 18 18 B/P (MAP) 138/55 160/58 (92) 154/63 (93) 138/54 (82) Pulse Ox 94 93 94 O2 Delivery Room Air Room Air Room Air 08/04/20 08/04/20 08/04/20 08/05/20 20:00 20:12 23:03 03:10 Temp 97.9 98.1 97.9 98.1 Pulse 68 61 66 Resp 16 16 B/P (MAP) 138/54 153/56 (88) 169/56 (93) Pulse Ox 94 91 O2 Delivery Room Air Room Air Room Air 08/05/20 07:00 Temp 98.3 98.3 Pulse 74 Resp 18 B/P (MAP) 180/71 (107) Pulse Ox 91 O2 Delivery Room Air Intake and Output 08/04/20 08/04/20 08/05/20 15:00 23:00 07:00 Intake Total 320 ml Output Total 200 ml 200 ml Balance 320 ml -200 ml -200 ml Justicifation of Admission Dx: Justifications for Admission: Justification of Admission Dx: Yes FLYNN NORIEGA MD Aug 05, 2020 09:07
[2020-08-05 09:09] LABS: CALCIUM 8.8 mg/dL (8.5-10.1); CREATININE 0.6 mg/dL (0.6-1.0); GFR 95.5; POTASSIUM 4.2 mmol/L (3.5-5.1)
--- NOTE | 2020-08-05 09:29 | PDOC ---
PROGRESS NOTES Date of Service DATE: 08/05/20 TIME: 09:26 Subjective Subjective No new complaints. 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 Assessment Assessment Problems Medical Problems: (1) Pleural effusion, left Status: Acute (2) Weakness Status: Acute Plan Plan of Care To SNF when medically stable. Comment Review of Relevant I have reviewed the following items cheng (where applicable) has been applied. Labs Laboratory Tests Test 08/04/20 07:55 08/05/20 07:30 White Blood Count 12.4 x10^3/uL (4.0-11.0) 15.1 x10^3/uL (4.0-11.0) Red Blood Count 3.03 x10^6/uL (3.50-5.40) 3.27 x10^6/uL (3.50-5.40) Hemoglobin 9.1 g/dL (12.0-15.5) 9.8 g/dL (12.0-15.5) Hematocrit 28.0 % (36.0-47.0) 30.0 % (36.0-47.0) Mean Corpuscular Volume 92 fL (79-100) 92 fL (79-100) Mean Corpuscular Hemoglobin 30 pg (25-35) 30 pg (25-35) Mean Corpuscular Hemoglobin Concent 33 g/dL (31-37) 33 g/dL (31-37) Red Cell Distribution Width 15.5 % (11.5-14.5) 15.5 % (11.5-14.5) Platelet Count 587 x10^3/uL (140-400) 692 x10^3/uL (140-400) Neutrophils (%) (Auto) 76 % (31-73) 82 % (31-73) Lymphocytes (%) (Auto) 10 % (24-48) 7 % (24-48) Monocytes (%) (Auto) 11 % (0-9) 9 % (0-9) Eosinophils (%) (Auto) 2 % (0-3) 1 % (0-3) Basophils (%) (Auto) 2 % (0-3) 1 % (0-3) Neutrophils # (Auto) 9.4 x10^3/uL (1.8-7.7) 12.4 x10^3/uL (1.8-7.7) Lymphocytes # (Auto) 1.3 x10^3/uL (1.0-4.8) 1.1 x10^3/uL (1.0-4.8) Monocytes # (Auto) 1.3 x10^3/uL (0.0-1.1) 1.4 x10^3/uL (0.0-1.1) Eosinophils # (Auto) 0.2 x10^3/uL (0.0-0.7) 0.1 x10^3/uL (0.0-0.7) Basophils # (Auto) 0.2 x10^3/uL (0.0-0.2) 0.1 x10^3/uL (0.0-0.2) Sodium Level 130 mmol/L (136-145) 128 mmol/L (136-145) Potassium Level 4.3 mmol/L (3.5-5.1) 4.2 mmol/L (3.5-5.1) Chloride Level 98 mmol/L (98-107) 96 mmol/L (98-107) Carbon Dioxide Level 24 mmol/L (21-32) 24 mmol/L (21-32) Anion Gap 8 (6-14) 8 (6-14) Blood Urea Nitrogen 20 mg/dL (7-20) 13 mg/dL (7-20) Creatinine 0.7 mg/dL (0.6-1.0) 0.6 mg/dL (0.6-1.0) Estimated GFR (Cockcroft-Gault) 79.9 95.5 Glucose Level 86 mg/dL (70-99) 85 mg/dL (70-99) Calcium Level 8.2 mg/dL (8.5-10.1) 8.8 mg/dL (8.5-10.1) Laboratory Tests Test 08/05/20 07:30 White Blood Count 15.1 x10^3/uL (4.0-11.0) Red Blood Count 3.27 x10^6/uL (3.50-5.40) Hemoglobin 9.8 g/dL (12.0-15.5) Hematocrit 30.0 % (36.0-47.0) Mean Corpuscular Volume 92 fL (79-100) Mean Corpuscular Hemoglobin 30 pg (25-35) Mean Corpuscular Hemoglobin Concent 33 g/dL (31-37) Red Cell Distribution Width 15.5 % (11.5-14.5) Platelet Count 692 x10^3/uL (140-400) Neutrophils (%) (Auto) 82 % (31-73) Lymphocytes (%) (Auto) 7 % (24-48) Monocytes (%) (Auto) 9 % (0-9) Eosinophils (%) (Auto) 1 % (0-3) Basophils (%) (Auto) 1 % (0-3) Neutrophils # (Auto) 12.4 x10^3/uL (1.8-7.7) Lymphocytes # (Auto) 1.1 x10^3/uL (1.0-4.8) Monocytes # (Auto) 1.4 x10^3/uL (0.0-1.1) Eosinophils # (Auto) 0.1 x10^3/uL (0.0-0.7) Basophils # (Auto) 0.1 x10^3/uL (0.0-0.2) Sodium Level 128 mmol/L (136-145) Potassium Level 4.2 mmol/L (3.5-5.1) Chloride Level 96 mmol/L (98-107) Carbon Dioxide Level 24 mmol/L (21-32) Anion Gap 8 (6-14) Blood Urea Nitrogen 13 mg/dL (7-20) Creatinine 0.6 mg/dL (0.6-1.0) Estimated GFR (Cockcroft-Gault) 95.5 Glucose Level 85 mg/dL (70-99) Calcium Level 8.8 mg/dL (8.5-10.1) Microbiology 07/31/20 Gram Stain - Final, Resulted 07/31/20 Aerobic and Anaerobic Culture - Preliminary, Resulted 07/30/20 Blood Culture - Final, Complete NO GROWTH AFTER 5 DAYS Medications Current Medications Azithromycin 250 ml @ 250 mls/hr 1X ONCE IV Last administered on 07/30/20at 18:50; Start 07/30/20 at 17:15; Stop 07/30/20 at 18:14; Status DC Atorvastatin Calcium (Lipitor) 20 mg HS PO Last administered on 08/04/20at 20:11; Start 07/30/20 at 21:00 Celecoxib (CeleBREX) 100 mg BID PO ; Start 07/30/20 at 21:00; Stop 07/31/20 at 05:43; Status DC Vitamin D (Vitamin D3) 1,000 unit DAILY PO Last administered on 08/04/20at 09:08; Start 07/31/20 at 09:00 Folic Acid (Folic Acid) 1 mg DAILY PO Last administered on 08/04/20at 09:08; Start 07/31/20 at 09:00 Acetaminophen/ Hydrocodone Bitart (Lortab 5/325) 1 tab PRN Q4HRS PRN PO PAIN Last administered on 08/02/20at 03:20; Start 07/30/20 at 20:45 Levothyroxine Sodium (Synthroid) 75 mcg DAILY06 PO Last administered on 08/05/20at 05:35; Start 07/31/20 at 06:00 Lisinopril (Prinivil) 20 mg DAILY PO Last administered on 08/01/20at 09:42; Start 07/31/20 at 09:00; Stop 08/02/20 at 14:54; Status DC Methotrexate (Rheumatrex) 15 mg Fr@0900 PO ; Start 08/02/20 at 09:00; Stop 07/31/20 at 13:50; Status DC Influenza Virus Vaccine Quadrival (Fluzone Quad Syringe) 0.5 ml ONCE ONCE VAX IM Last administered on 07/31/20at 17:27; Start 07/31/20 at 09:00; Stop 07/31/20 at 09:01; Status DC Furosemide (Lasix) 40 mg DAILY PO ; Start 07/31/20 at 09:00; Stop 07/31/20 at 08:24; Status DC Aspirin (Ecotrin) 81 mg DAILYWBKFT PO Last administered on 08/04/20at 09:08; Start 07/31/20 at 12:00 Lidocaine HCl (Buffered Lidocaine 1%) 3 ml STK-MED ONCE .ROUTE ; Start 07/31/20 at 12:01; Stop 07/31/20 at 12:01; Status DC Lidocaine HCl (Buffered Lidocaine 1%) 3 ml 1X ONCE INJ ; Start 07/31/20 at 12:15; Stop 07/31/20 at 12:16; Status DC Lidocaine HCl (Buffered Lidocaine 1%) 6 ml 1X ONCE IJ Last administered on 07/31/20at 12:23; Start 07/31/20 at 12:30; Stop 07/31/20 at 12:31; Status DC Sulfasalazine (Azulfidine) 1,000 mg BID PO Last administered on 08/04/20at 20:12; Start 07/31/20 at 21:00 Polyethylene Glycol (miraLAX PACKET) 17 gm PRN DAILY PRN PO CONSTIPATION Last administered on 08/01/20at 09:43; Start 07/31/20 at 16:45 Methylprednisolone Acetate (DEPO-Medrol 40MG VIAL) 40 mg 1X ONCE IM ; Start 08/01/20 at 12:30; Stop 08/01/20 at 12:31; Status DC Bupivacaine HCl (Sensorcaine-Mpf 0.25%) 10 ml 1X ONCE IJ ; Start 08/01/20 at 1 2:30; Stop 08/01/20 at 12:31; Status DC Metoprolol Tartrate (Lopressor Vial) 2.5 mg PRN Q15MIN PRN IVP TACHYCARDIA Last administered on 08/02/20at 03:29; Start 08/02/20 at 03:00; Stop 08/02/20 at 14:54; Status DC Digoxin (Lanoxin) 500 mcg 1X ONCE IV Last administered on 08/02/20at 11:45; Start 08/02/20 at 11:30; Stop 08/02/20 at 11:31; Status DC Sodium Chloride 1,000 ml @ 1,000 mls/hr 1X ONCE IV Last administered on 08/02/20at 12:00; Start 08/02/20 at 12:00; Stop 08/02/20 at 12:59; Status DC Metoprolol Tartrate (Lopressor Vial) 5 mg Q6HRS IVP Last administered on 08/03/20at 06:26; Start 08/02/20 at 18:00; Stop 08/03/20 at 09:30; Status DC Sodium Chloride 1,000 ml @ 100 mls/hr Q10H IV Last administered on 08/03/20at 06:25; Start 08/02/20 at 19:45 Metoprolol Tartrate (Lopressor) 25 mg BID PO Last administered on 08/04/20at 20:12; Start 08/03/20 at 09:30 Apixaban (Eliquis) 2.5 mg BID PO Last administered on 08/04/20at 20:11; Start 08/03/20 at 09:30 Info (Anti-Coagulation Monitoring By Pharmacy) 1 each PRN DAILY PRN MC SEE COMMENTS Last administered on 08/04/20at 14:33; Start 08/03/20 at 09:45 Ferrous Sulfate (Feosol) 325 mg DAILYWBKFT PO Last administered on 08/04/20at 09:08; Start 08/03/20 at 12:00 Active Scripts Active Azulfidine (Sulfasalazine) 500 Mg Tablet 1,000 Mg PO BID Celebrex (Celecoxib) 100 Mg Capsule 100 Mg PO BID 14 Days Reported Lipitor (Atorvastatin Calcium) 20 Mg Tablet 20 Mg PO HS Vitamin D3 (Cholecalciferol (Vitamin D3)) 1,000 Unit Tablet 1 Tab PO DAILY Folic Acid 1 Mg Tablet 1 Mg PO DAILY Hydrocodone-Apap 5-325 (Hydrocodone Bit/Acetaminophen) 1 Each Tablet 1-2 Tab PO Q 4 HOURS Levothyroxine Sodium 75 Mcg Tablet 75 Mcg PO Lisinopril 20 Mg Tablet 1 Tab PO DAILY Vitals/I & O Vital Sign - Last 24 Hours 08/04/20 08/04/20 08/04/20 08/04/20 11:59 15:59 19:00 20:00 Temp 98.1 97.9 97.7 98.1 97.9 97.7 Pulse 61 69 68 Resp 18 18 18 B/P (MAP) 160/58 (92) 154/63 (93) 138/54 (82) Pulse Ox 94 93 94 O2 Delivery Room Air Room Air Room Air Room Air 1/24/21 1/24/21 1/25/21 1/25/21 20:12 23:03 03:10 07:00 Temp 97.9 98.1 98.3 97.9 98.1 98.3 Pulse 68 61 66 74 Resp 16 16 18 B/P (MAP) 138/54 153/56 (88) 169/56 (93) 180/71 (107) Pulse Ox 94 91 91 O2 Delivery Room Air Room Air Room Air Intake and Output 08/04/20 08/04/20 08/05/20 14:59 22:59 06:59 Intake Total 320 ml Output Total 200 ml 200 ml Balance 320 ml -200 ml -200 ml Justifications for Admission Other Justification ARCHANA SANFORD MD Aug 05, 2020 09:29
[2020-08-05] MEDS: FOLIC ACID 1 MG TABLET. PO SCH (09:48)
[2020-08-05] MEDS: CHOLECALCIFEROL (VITAMIN D3) 1,000 UNIT TABLET PO SCH (09:48)
[2020-08-05] MEDS: FERROUS SULFATE 325 MG TABLET. PO SCH (09:48)
[2020-08-05] MEDS: sulfaSALAzine 500 MG TABLET PO SCH (09:48)
[2020-08-05] MEDS: METOPROLOL TART IMMED RELEASE 25 MG TABLET. PO SCH (09:48)
[2020-08-05] MEDS: ASPIRIN ENTERIC COATED 81 MG TABLET.DR. PO SCH (09:48)
[2020-08-05] MEDS: APIXABAN 2.5 MG TABLET. PO SCH (09:49)
--- NOTE | 2020-08-05 10:11 | NUR ---
LORRIE following. Discussed with [facility] has a bed for pt today, but a COVID test within 72 hours is needed. Rapid covid test done, awaiting results for discharge to [facility] today. LORRIE will continue to follow. Addendum: 08/05/20 at 1112 by JOE ANDREW Pt's rapid COVID test came back positive. [facility] can not accept COVID positive patients. LORRIE spoke with pt's daughter, Leatha. She would like referral sent to [facility] and [facility]. [facility] of are not taking COVID positive at this time. [facility] is, and has a bed. LORRIE faxed referral to Vicki at [facility], awaiting acceptance decision. Addendum: 08/05/20 at 1426 by JOE ANDREW Pt accepted at [facility] for snu. [facility] will collect pt between [id number]. RN and pt's daughter, Leatha notified.
--- NOTE | 2020-08-05 10:20 | PDOC3 ---
Discharge Summary Date of Admission: Jul 30, 2020 Date of Discharge: Aug 05, 2020 Follow-Up: 1-2 days Admitting Diagnosis comment: Chief Complaint Chief Complaint HOSPITAL SUMMARY ADMITTED 07-30-20 DATE OF DISCHARGE 08-05-[address] SANFORD, CARDIOLOGY procedures====== thoracentesis , ECHO complications none follow up snf PCP TODAY, REG PCP DR WEI 2-3 WEEKS , CARDIOLOGY SOON DISCHARGE DX ACUTE COMBINED SYSTOLIC AND DIASTOLIC CHF acute weakness, debility, worsening over days MODERATE TO SEVERE PULMONARY HYPERTENSION new left pleural effusion, cardiac etiology Hc aortic stenosis, s/p valve repair, rheumatoid arthritis, s/p pathologic fx to L1 leg pain and weakness, , chronic knee pain, s/p joint injection Dr. Wei office last week by his RN DISCHARGE Atrial flutter, History of Present Illness History of Present Illness REASON FOR HOSPITAL STAY Ms. Null, is a 84-year-old female with history of aortic stenosis s/p TAVR at [facility] in June 2018 admit from ER for marked weaknes, worse over 1 week, and severe could not get out of bed, was directed to the ER by primary care no LE edema, but left leg pain,, NOTED TO HAVE MODERATE PLEURAL EFFUSION 07/31: Patient evaluated bedside. Afebrile, breathing room air. Thoracentesis DONE BELOW PT/OT. Continue home medications. Will follow cardiology recommendations. Patient apparently is not on methotrexate anymore but on sulfasalazine at an unknown dose. Will try to obtain accurate home medications from pharmacy. 08/01: Status post left-sided thoracentesis with 900 cc removed. No organisms seen on Gram stain, cultures with no growth to date. Patient breathing comfortably on room air. Participated with PT and I recommended care home. Spoke with Dr. Sanford who agrees. 08/02: Seen and evaluated S/P thoracentesis. Cytology of pleural fluid is negative for malignant cells. Some tachycardia noted overnight, treated with metoprolol as needed. She did report left-sided chest pain during this episode of tachycardia. She is again tachycardic this morning with exertion, low blood pressure. Will repeat vitals and consider adding metoprolol succinate. She is approved for SNF, and could possibly still discharge today. 08/03: Patient seen at bedside. She feels okay today. Heart rate well controlled on metoprolol 25 mg twice daily. She will need this new medication upon discharge. Plan is to get patient to SNF on Wednesday. 08/04: Heart rate well controlled on metoprolol twice daily. No acute events overnight. Patient plan to discharge to SNF 08-05 . She will need metoprolol 25 mg twice daily and Eliquis 2.5 mg twice daily upon discharge. Denies chest pain or SOB. 08/05 d/c today to snf Vitals Vitals Vital Signs Date Time Temp Pulse Resp B/P (MAP) Pulse Ox O2 Delivery O2 Flow Rate FiO2 08/05/20 07:00 98.3 74 18 180/71 (107) 91 Room Air 98.3 Physical Exam General: Alert, Oriented X3, Cooperative, No acute distress Heart: Regular rate, Other Lungs: Clear Abdomen: Soft, No tenderness Extremities: No clubbing, No cyanosis, No edema Skin: No breakdown, No significant lesion Labs LABS PATIENT: IRENE NULL ACCOUNT: [id number] : 1935 LOCATION: [address] [place] [address] AGE: 84 SEX: F EXAM STATUS: ADM IN ORD. PHYSICIAN: MERLENE YU MD REASON: left pleural effusion PROCEDURE: [id number] THORACENT/ASPIR W/ IMG Ultrasound-guided right-sided thoracentesis 07/31/2020 1:42 PM Indication: left pleural effusion Procedure: Informed consent was obtained. A timeout procedure was performed. Sonographic evaluation of the left chest was performed demonstrating moderate pleural effusion. The left posterior chest was prepped and draped in sterile fashion. 1% lidocaine without epinephrine was administered for local anesthesia. Real-time ultrasonographic guidance was used in passing a 5 Yi [id number] catheter into the left pleural space. 900 cc of serous pleural fluid was removed. Samples of fluid were sent to the lab for further evaluation per ordering physician request. The catheter was removed and pressure held to achieve hemostasis. A sterile dressing was applied. No immediate complications were identified. The patient tolerated the procedure well. Impression: Left sided ultrasound-guided thoracentesis DICTATED and SIGNED BY: ANANYA JUAREZ MD DATE: 07/31/20 [id number] XR CHEST 1V History: Reason: generalized weakness / Spl. Instructions: / History: Comparison: February 11, 2019 Findings: Moderate left pleural effusion with adjacent opacity. Chronic right-sided rib fractures. No pneumothorax. Unchanged heart size. TAVR noted. Postop changes upper lumbar spine. Impression: 1. Moderate left pleural effusion with adjacent atelectasis. Electronically signed by: Franko Lopez DO (07/30/2020 3:54 PM) [id number] RIGHT VENTRICLE The right ventricle is normal size. The right ventricular systolic function is normal. ATRIA The left atrium size is normal. The right atrium size is normal. The interatrial septum is intact with no evidence for an atrial septal defect or patent foramen ovale as noted on 2-D or Doppler imaging. AORTIC VALVE Doppler and Color Flow revealed no significant aortic regurgitation. Calculated aortic valve area is 1.6 cm2 with maximum pressure gradient of 29 mmHg and mean pressure gradient of 18 mmHg. s/p TAVR with well seated and normally functioning prosthetic valve. MITRAL VALVE The mitral valve is calcified but opens well. Mitral annular calcification is mild. There is no evidence of mitral valve prolapse. There is no mitral valve stenosis. Doppler and Color-flow revealed trace mitral regurgitation. TRICUSPID VALVE The tricuspid valve is normal in structure and function. Doppler and Color Flow revealed trace tricuspid regurgitation. There is moderate pulmonary hypertension. The PA pressure was estimated at 52 mmHg. There is no tricuspid valve stenosis. PULMONIC VALVE The pulmonic valve is not well visualized. Doppler and Color Flow revealed mild pulmonic valvular regurgitation. There is no pulmonic valvular stenosis. GREAT VESSELS The aortic root is normal in size. The ascending aorta is not well seen. The IVC is normal in size and collapses >50% with inspiration. PERICARDIAL EFFUSION There is no evidence of significant pericardial effusion. Critical Notification Critical Value: No <Conclusion> The left ventricular systolic function is normal. The Ejection Fraction is 60-65%. There is normal LV segmental wall motion. Transmitral Doppler flow pattern is Grade I-abnormal relaxation pattern. s/p TAVR with well seated and normally functioning prosthetic valve. Trace mitral regurgitation. Trace tricuspid regurgitation. There is moderate pulmonary hypertension. The PA pressure was estimated at 52 mmHg. There is no evidence of significant pericardial effusion. Signed by : Jovon Pasnoori, Electronically Approved : 07/31/2020 17:49:59 FINAL DIAGNOSIS Problems Medical Problems: (1) Pleural effusion, left Status: Acute (2) Weakness Status: Acute Brief Hospital Course Ms. Null is a 84 old [sex] who presented with [ acute pleural effusion, weakness , chf ] CONDITION AT DISCHARGE: Improved Discharge Medications Current Medications Azithromycin 250 ml @ 250 mls/hr 1X ONCE IV Last administered on 07/30/20at 18:50; Start 07/30/20 at 17:15; Stop 07/30/20 at 18:14; Status DC Atorvastatin Calcium (Lipitor) 20 mg HS PO Last administered on 08/04/20at 20:11; Start 07/30/20 at 21:00 Celecoxib (CeleBREX) 100 mg BID PO ; Start 07/30/20 at 21:00; Stop 07/31/20 at 05:43; Status DC Vitamin D (Vitamin D3) 1,000 unit DAILY PO Last administered on 08/05/20at 09:48; Start 07/31/20 at 09:00 Folic Acid (Folic Acid) 1 mg DAILY PO Last administered on 08/05/20at 09:48; Start 07/31/20 at 09:00 Acetaminophen/ Hydrocodone Bitart (Lortab 5/325) 1 tab PRN Q4HRS PRN PO PAIN Last administered on 08/02/20at 03:20; Start 07/30/20 at 20:45 Levothyroxine Sodium (Synthroid) 75 mcg DAILY06 PO Last administered on 08/05/20at 05:35; Start 07/31/20 at 06:00 Lisinopril (Prinivil) 20 mg DAILY PO Last administered on 08/01/20at 09:42; Start 07/31/20 at 09:00; Stop 08/02/20 at 14:54; Status DC Methotrexate (Rheumatrex) 15 mg Fr@0900 PO ; Start 08/02/20 at 09:00; Stop 07/31/20 at 13:50; Status DC Influenza Virus Vaccine Quadrival (Fluzone Quad Syringe) 0.5 ml ONCE ONCE VAX IM Last administered on 07/31/20at 17:27; Start 07/31/20 at 09:00; Stop 07/31/20 at 09:01; Status DC Furosemide (Lasix) 40 mg DAILY PO ; Start 07/31/20 at 09:00; Stop 07/31/20 at 08:24; Status DC Aspirin (Ecotrin) 81 mg DAILYWBKFT PO Last administered on 08/05/20at 09:48; Start 07/31/20 at 12:00 Lidocaine HCl (Buffered Lidocaine 1%) 3 ml STK-MED ONCE .ROUTE ; Start 07/31/20 at 12:01; Stop 07/31/20 at 12:01; Status DC Lidocaine HCl (Buffered Lidocaine 1%) 3 ml 1X ONCE INJ ; Start 07/31/20 at 12:15; Stop 07/31/20 at 12:16; Status DC Lidocaine HCl (Buffered Lidocaine 1%) 6 ml 1X ONCE IJ Last administered on 07/31/20at 12:23; Start 07/31/20 at 12:30; Stop 07/31/20 at 12:31; Status DC Sulfasalazine (Azulfidine) 1,000 mg BID PO Last administered on 08/05/20at 09:48; Start 07/31/20 at 21:00 Polyethylene Glycol (miraLAX PACKET) 17 gm PRN DAILY PRN PO CONSTIPATION Last administered on 08/01/20at 09:43; Start 07/31/20 at 16:45 Methylprednisolone Acetate (DEPO-Medrol 40MG VIAL) 40 mg 1X ONCE IM ; Start 08/01/20 at 12:30; Stop 08/01/20 at 12:31; Status DC Bupivacaine HCl (Sensorcaine-Mpf 0.25%) 10 ml 1X ONCE IJ ; Start 08/01/20 at 12:30; Stop 08/01/20 at 12:31; Status DC Metoprolol Tartrate (Lopressor Vial) 2.5 mg PRN Q15MIN PRN IVP TACHYCARDIA Last administered on 08/02/20at 03:29; Start 08/02/20 at 03:00; Stop 08/02/20 at 14:54; Status DC Digoxin (Lanoxin) 500 mcg 1X ONCE IV Last administered on 08/02/20at 11:45; Start 08/02/20 at 11:30; Stop 08/02/20 at 11:31; Status DC Sodium Chloride 1,000 ml @ 1,000 mls/hr 1X ONCE IV Last administered on 08/02/20at 12:00; Start 08/02/20 at 12:00; Stop 08/02/20 at 12:59; Status DC Metoprolol Tartrate (Lopressor Vial) 5 mg Q6HRS IVP Last administered on 08/03/20at 06:26; Start 08/02/20 at 18:00; Stop 08/03/20 at 09:30; Status DC Sodium Chloride 1,000 ml @ 100 mls/hr Q10H IV Last administered on 08/03/20at 06:25; Start 08/02/20 at 19:45 Metoprolol Tartrate (Lopressor) 25 mg BID PO Last administered on 08/05/20at 09:48; Start 08/03/20 at 09:30 Apixaban (Eliquis) 2.5 mg BID PO Last administered on 08/05/20at 09:49; Start 08/03/20 at 09:30 Info (Anti-Coagulation Monitoring By Pharmacy) 1 each PRN DAILY PRN MC SEE COMMENTS Last administered on 08/04/20at 14:33; Start 08/03/20 at 09:45 Ferrous Sulfate (Feosol) 325 mg DAILYWBKFT PO Last administered on 08/05/20at 09:48; Start 08/03/20 at 12:00 Active Scripts Active Azulfidine (Sulfasalazine) 500 Mg Tablet 1,000 Mg PO BID Celebrex (Celecoxib) 100 Mg Capsule 100 Mg PO BID 14 Days Reported Lipitor (Atorvastatin Calcium) 20 Mg Tablet 20 Mg PO HS Vitamin D3 (Cholecalciferol (Vitamin D3)) 1,000 Unit Tablet 1 Tab PO DAILY Folic Acid 1 Mg Tablet 1 Mg PO DAILY Hydrocodone-Apap 5-325 (Hydrocodone Bit/Acetaminophen) 1 Each Tablet 1-2 Tab PO Q 4 HOURS Levothyroxine Sodium 75 Mcg Tablet 75 Mcg PO Lisinopril 20 Mg Tablet 1 Tab PO DAILY Vital Signs Vital Signs Date Time Temp Pulse Resp B/P (MAP) Pulse Ox O2 Delivery O2 Flow Rate FiO2 08/05/20 09:48 74 180/71 08/05/20 07:00 98.3 18 91 Room Air 98.3 Labs Laboratory Tests Test 08/04/20 07:55 08/05/20 07:30 White Blood Count 12.4 x10^3/uL (4.0-11.0) 15.1 x10^3/uL (4.0-11.0) Red Blood Count 3.03 x10^6/uL (3.50-5.40) 3.27 x10^6/uL (3.50-5.40) Hemoglobin 9.1 g/dL (12.0-15.5) 9.8 g/dL (12.0-15.5) Hematocrit 28.0 % (36.0-47.0) 30.0 % (36.0-47.0) Mean Corpuscular Volume 92 fL (79-100) 92 fL (79-100) Mean Corpuscular Hemoglobin 30 pg (25-35) 30 pg (25-35) Mean Corpuscular Hemoglobin Concent 33 g/dL (31-37) 33 g/dL (31-37) Red Cell Distribution Width 15.5 % (11.5-14.5) 15.5 % (11.5-14.5) Platelet Count 587 x10^3/uL (140-400) 692 x10^3/uL (140-400) Neutrophils (%) (Auto) 76 % (31-73) 82 % (31-73) Lymphocytes (%) (Auto) 10 % (24-48) 7 % (24-48) Monocytes (%) (Auto) 11 % (0-9) 9 % (0-9) Eosinophils (%) (Auto) 2 % (0-3) 1 % (0-3) Basophils (%) (Auto) 2 % (0-3) 1 % (0-3) Neutrophils # (Auto) 9.4 x10^3/uL (1.8-7.7) 12.4 x10^3/uL (1.8-7.7) Lymphocytes # (Auto) 1.3 x10^3/uL (1.0-4.8) 1.1 x10^3/uL (1.0-4.8) Monocytes # (Auto) 1.3 x10^3/uL (0.0-1.1) 1.4 x10^3/uL (0.0-1.1) Eosinophils # (Auto) 0.2 x10^3/uL (0.0-0.7) 0.1 x10^3/uL (0.0-0.7) Basophils # (Auto) 0.2 x10^3/uL (0.0-0.2) 0.1 x10^3/uL (0.0-0.2) Sodium Level 130 mmol/L (136-145) 128 mmol/L (136-145) Potassium Level 4.3 mmol/L (3.5-5.1) 4.2 mmol/L (3.5-5.1) Chloride Level 98 mmol/L (98-107) 96 mmol/L (98-107) Carbon Dioxide Level 24 mmol/L (21-32) 24 mmol/L (21-32) Anion Gap 8 (6-14) 8 (6-14) Blood Urea Nitrogen 20 mg/dL (7-20) 13 mg/dL (7-20) Creatinine 0.7 mg/dL (0.6-1.0) 0.6 mg/dL (0.6-1.0) Estimated GFR (Cockcroft-Gault) 79.9 95.5 Glucose Level 86 mg/dL (70-99) 85 mg/dL (70-99) Calcium Level 8.2 mg/dL (8.5-10.1) 8.8 mg/dL (8.5-10.1) Laboratory Tests Test 08/05/20 07:30 White Blood Count 15.1 x10^3/uL (4.0-11.0) Red Blood Count 3.27 x10^6/uL (3.50-5.40) Hemoglobin 9.8 g/dL (12.0-15.5) Hematocrit 30.0 % (36.0-47.0) Mean Corpuscular Volume 92 fL (79-100) Mean Corpuscular Hemoglobin 30 pg (25-35) Mean Corpuscular Hemoglobin Concent 33 g/dL (31-37) Red Cell Distribution Width 15.5 % (11.5-14.5) Platelet Count 692 x10^3/uL (140-400) Neutrophils (%) (Auto) 82 % (31-73) Lymphocytes (%) (Auto) 7 % (24-48) Monocytes (%) (Auto) 9 % (0-9) Eosinophils (%) (Auto) 1 % (0-3) Basophils (%) (Auto) 1 % (0-3) Neutrophils # (Auto) 12.4 x10^3/uL (1.8-7.7) Lymphocytes # (Auto) 1.1 x10^3/uL (1.0-4.8) Monocytes # (Auto) 1.4 x10^3/uL (0.0-1.1) Eosinophils # (Auto) 0.1 x10^3/uL (0.0-0.7) Basophils # (Auto) 0.1 x10^3/uL (0.0-0.2) Sodium Level 128 mmol/L (136-145) Potassium Level 4.2 mmol/L (3.5-5.1) Chloride Level 96 mmol/L (98-107) Carbon Dioxide Level 24 mmol/L (21-32) Anion Gap 8 (6-14) Blood Urea Nitrogen 13 mg/dL (7-20) Creatinine 0.6 mg/dL (0.6-1.0) Estimated GFR (Cockcroft-Gault) 95.5 Glucose Level 85 mg/dL (70-99) Calcium Level 8.8 mg/dL (8.5-10.1) Allergies Allergies Coded Allergies Type Severity Reaction Last Updated Verified No Known Drug Allergies 08/20/14 No Disposition/Orders: Other (D/C TO SNF) Justicifation of Admission Dx: Justifications for Admission: Justification of Admission Dx: Yes FLYNN NORIEGA MD Aug 05, 2020 10:20
[2020-08-05] MEDS ORDERED: ASPI-886 PO (10:26)
[2020-08-05] MEDS ORDERED: POLY17PO52 PO (10:26)
[2020-08-05] MEDS ORDERED: METO25TA4 PO (10:26)
[2020-08-05] MEDS ORDERED: FERR325T72 PO (10:26)
[2020-08-05] MEDS ORDERED: APIX2.5T PO (10:26)
[2020-08-05 11:00] VITALS: BP 143/60
--- NOTE | 2020-08-05 14:13 | NUR ---
Report called to facility to phone number [phone]
[2020-08-05 15:00] VITALS: BP 135/60
--- NOTE | 2020-08-05 16:45 | NUR ---
patient discharged to facility via transportation company.
== END 2020-08-05 16:30 | DRG 177 ==
LOC: ER 14:36 → 5 NORTH 17:05
PROVIDERS: ADMIT Internal Medicine; ATTEND Internal Medicine
PROC: 0W993ZZ Drainage of Right Pleural Cavity, Percutaneous Approach (ICD-10-PCS; principal; 2020-07-31)
PROC: 3E0U33Z Introduction of Anti-inflammatory into Joints, Percutaneous Approach (ICD-10-PCS; 2020-08-01)
PROC: 3E0U3BZ Introduction of Anesthetic Agent into Joints, Percutaneous Approach (ICD-10-PCS; 2020-08-01)
DX: U07.1 COVID-19 (principal); I50.43 Acute on chronic combined systolic (congestive) and diastolic (congestive) heart failure; E87.1 Hypo-osmolality and hyponatremia; J98.11 Atelectasis; I48.92 Unspecified atrial flutter; I11.0 Hypertensive heart disease with heart failure; M06.9 Rheumatoid arthritis, unspecified; E03.9 Hypothyroidism, unspecified; I44.7 Left bundle-branch block, unspecified; Z95.2 Presence of prosthetic heart valve; Z98.1 Arthrodesis status; M54.16 Radiculopathy, lumbar region; R29.6 Repeated falls; E78.5 Hyperlipidemia, unspecified; G89.29 Other chronic pain; I27.20 Pulmonary hypertension, unspecified; I35.0 Nonrheumatic aortic (valve) stenosis; K59.00 Constipation, unspecified; M19.90 Unspecified osteoarthritis, unspecified site; M81.0 Age-related osteoporosis without current pathological fracture; Z79.899 Other long term (current) drug therapy; Z82.49 Family history of ischemic heart disease and other diseases of the circulatory system; Z83.49 Family history of other endocrine, nutritional and metabolic diseases; Z85.820 Personal history of malignant melanoma of skin; Z87.891 Personal history of nicotine dependence; Z91.81 History of falling; K21.9 Gastro-esophageal reflux disease without esophagitis; I95.9 Hypotension, unspecified
CPT/HCPCS: 32555; 36415; 71045; 73565; 80048; 80053; 81001; 82550; 83615; 83735; 83880; 83986; 84157; 84443; 84484; 85007; 85025; 85610; 86140; 87040; 87071; 87075; 87426; 88112; 88305; 89050; 90471; 90686; 93005; 93306; 96365; C1892; J0456; J1030; J1160; J3490; J7030; U0003; 97110-GP; 97116-GP; 97530-GO; 97530-GP; 97535-GO; 99285-25; G0378

== ENCOUNTER → 2021-02-06 | Outpatient (CLI) | payer MEDICARE ==
[~2021-02-06] MED LIST changes: +APIX2.5T PO; +ASPI-886 PO; +FERR325T72 PO; +IOHEXOL 300 MG/ML 100ML VIAL. IV ONE; +METO25TA4 PO; +POLY17PO52 PO; +SULF500T PO
--- NOTE | 2021-02-06 15:14 | KCIC ---
Examination: CT chest with IV contrast HISTORY: History of subcutaneous thoracic mass COMPARISON: None available TECHNIQUE: Axial CT images of the chest were performed with IV contrast. Coronal and sagittal reforma ts are performed Exposure: One or more of the following individualized dose reduction techniques were utilized for thi s examination: 1. Automated exposure control 2. Adjustment of the mA and/or kV according to patient size 3. Use of iterative reconstruction technique FINDINGS: Right lobe of the thyroid gland identified. The left lobe of the thyroid gland is not identified. The re is a heterogeneous nodule measuring 2.3 cm extending from the inferior pole of the right lobe of t he thyroid gland into the mediastinum probably thyroid nodule. Mild thickening of the bilateral apica l lung pleura. The lungs are otherwise clear. 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 The liver, spleen, adrenals grossly appears unremarkable. Moderate degenerative changes thoracic spine. Thoracolumbar hardware. IMPRESSION: 1. 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 Consider close interval follow-up examination to document stability. 2. 2.3 cm heterogeneous nodule extending from the inferior pole of the right lobe of the thyroid gla nd into the mediastinum probably thyroid nodule. Follow-up nonemergent ultrasound thyroid gland can b e considered. Electronically signed by: Jamal Wheat MD (02/06/2021 3:12 PM) [id number]
== END ==
LOC: KCIC CT 12:27
PROVIDERS: ATTEND Family Medicine
DX: E04.1 Nontoxic single thyroid nodule (principal); R22.9 Localized swelling, mass and lump, unspecified
CPT/HCPCS: 71260; 82565; Q9967